=== PATIENT | female | born 1950 | race Two or more races ===

== ENCOUNTER 2021-10-23 16:35 | Inpatient (IN) | payer MEDICARE, OTHER ==
[~2021-10-23] VITALS: Ht 165.1 cm; Wt 70.8 kg
--- NOTE | 2021-10-23 16:45 | NUR ---
TO ER BED 8, BIBPA MORE WEAK ON LEFT SIDE SINCE 10AM AND ALTERED THAN USUAL, BASELINE AAOX2 PER AMBULANCE REPORT, PT RESPONSE TO NAME WHEN CALLED, CONNECTED TO MONITOR, AWAITING MD BARRETT
--- NOTE | 2021-10-23 17:08 | NUR ---
SALINE LOCK ESTABLISHED, BLOOD DRAWN AND SENT TO LAB
[2021-10-23] MEDS ORDERED: ASPI-1169 PO (17:10)
[2021-10-23] MEDS ORDERED: TOPI100T PO (17:10)
[2021-10-23] MEDS ORDERED: LACO50TA2 PO (17:10)
[2021-10-23] MEDS ORDERED: MULT-134 PO (17:10)
[2021-10-23] MEDS ORDERED: LEVE1000 PO (17:10)
[2021-10-23] MEDS ORDERED: CALC-1180 PO (17:10)
[2021-10-23] MEDS ORDERED: LEVO137T24 PO (17:10)
[2021-10-23] MEDS ORDERED: DONE10TA11 PO (17:10)
[2021-10-23] MEDS ORDERED: METO25TA4 PO (17:10)
[2021-10-23] MEDS ORDERED: ATOR80TA PO (17:10)
[2021-10-23] MEDS ORDERED: CHOL200013 PO (17:10)
[2021-10-23] MEDS ORDERED: BACL20TA PO (17:10)
[2021-10-23] MEDS ORDERED: FOLI0.8C PO (17:10)
[2021-10-23] MEDS ORDERED: DOCU-141 PO (17:10)
[2021-10-23] MEDS ORDERED: OMEG-88 PO (17:10)
[2021-10-23] MEDS ORDERED: CRAN3875 PO (17:10)
[2021-10-23] MEDS ORDERED: POTA-10 PO (17:10)
[2021-10-23 17:18] LABS: BASOPHILS % (AUTO) 0.4 % (0.0-2.0); EOSINOPHILS % (AUTO) 1.3 % (0.0-6.0); HEMATOCRIT 43 % (33-45); LYMPHOCYTES # (AUTO) 4.1 K/uL (0.8-4.8); LYMPHOCYTES % (AUTO) 34.5 % (20.0-44.0); MEAN CORPUSCULAR HGB CONC 32 g/dl (31.0-36.0); MEAN CORPUSCULAR VOLUME 100 fL (82-100); MONOCYTES # (AUTO) 0.9 K/uL (0.1-1.30); MONOCYTES % (AUTO) 7.3 % (2.0-12.0); NEUTROPHILS # (AUTO) 6.7 K/uL (1.8-8.9); NEUTROPHILS % (AUTO) 56.5 % (43.0-81.0); PLATELET COUNT (AUTO) 269 K/uL (150-450); RED BLOOD CELL COUNT(AUTO) 4.35 MIL/uL (4.0-5.2); WHITE BLOOD COUNT (AUTO) 11.8 K/uL (4.3-11.0)
--- NOTE | 2021-10-23 17:25 | NUR ---
TAKEN TO CT VIA OANH
[2021-10-23] MEDS ORDERED: IV NS 0.9% 500 ML BAG IV ONE (17:30)
[2021-10-23 17:32] LABS: ALBUMIN 3.2 g/dL (3.4-5.0); BILIRUBIN,TOTAL 0.3 mg/dL (0.2-1.0); CALCIUM, SERUM 8.7 mg/dL (8.5-10.1); CREATININE 0.7 mg/dL (0.6-1.3); POTASSIUM 4.7 mmol/L (3.5-5.1); TOTAL PROTEIN, SERUM 6.8 g/dL (6.4-8.2)
--- NOTE | 2021-10-23 17:40 | NUR ---
URINE COLLECTED AND COVID SWAB DONE AND SENT TO LAB
[2021-10-23 18:40] LABS: BILIRUBIN,URINE NEGATIVE (NEGATIVE); COLOR,URINE YELLOW (YELLOW); LEUKOCYTE ESTERASE ,URINE NEGATIVE (NEGATIVE); NITRITE, URINE NEGATIVE (NEGATIVE); PROTEIN,URINE NEGATIVE (NEGATIVE); UGLUCOSE NEGATIVE (NEGATIVE); UROBILINOGEN,URINE 0.2 EU/dL (0.2)
--- NOTE | 2021-10-23 19:25 | NUR ---
RECEIVED REPORT FROM ELIZA EPPS FOR ONEAL
--- NOTE | 2021-10-23 19:52 | NUR ---
PT IS RESTING COMFORTABLY IN BED, WARM BLANKETS PROVIDED. WILL CONTINUE TO MONITOR.
--- NOTE | 2021-10-23 20:08 | NUR ---
CALLED [facility], PAGED HERON TAYLOR
--- NOTE | 2021-10-23 21:02 | NUR ---
REPORT GIVEN TO ANAI EPPS FOR ONEAL
--- NOTE | 2021-10-23 21:45 | NUR ---
TEXT FOR MRI APPROVAL.
--- NOTE | 2021-10-23 21:49 | NUR ---
[facility] paged
[2021-10-23] MEDS ORDERED: ACETAMINOPHEN 650 MG/SUPP.RECT RC PRN (22:30)
[2021-10-23] MEDS ORDERED: MAG HYDROX/AL HYDROX/SIMETH 30 ML UDC PO PRN (22:30)
[2021-10-23] MEDS ORDERED: ENOXAPARIN SODIUM 40 MG/0.4 ML DISP.SYRIN SQ SCH ×2 (22:30→22:36)
--- NOTE | 2021-10-23 23:17 | NUR ---
RN ADMITTING NOTE RECEIVED REPORT FROM WENDY EPPS. PATIENT IS FROM [facility]. PATIENT IS A/O X 1 AT THIS TIME. RESPONDS TO NAME. PATIENT'S TELE MONITOR READS SR/ECTOPIC ATRIAL RHYTHM 65 BPM. NOTED RIGHT SIDE DEFICIT AND MILD LEFT SIDED WEAKNESS. PATIENT CAME WITH A STRAIGHT CATH 400 ML VOLUME ALREADY IN THE BAG. PATIENT HAS A LFA 20 G PATENT AND INTACT. PATIENT'S BREATHING EVEN AND UNLABORED. TOLERATING ROOM AIR AT 97% O2 SATURATION. PATIENT HAS A SHIRT AND A PILLOW FROM THE FACILITY FOR HER BELONGINGS. SKIN ISSUES DOCUMENTED. PATIENT ORIENTED TO ROOM, RN, AND SURGICAL DRESSING MAKER. PATIENT NEEDS FURTHER RE-ORIENTATION. SAFETY MEASURES IN PLACE: BED LOCKED AND IN LOWEST POSITION, CALL LIGHT WITHIN REACH, SIDE RAILS UP. HOB ELEVATED. WILL MONITOR PATIENT CLOSELY
[2021-10-24 00:05] VITALS: BP 146/59
--- NOTE | 2021-10-24 00:30 | NUR ---
RN NOTE ECHO BEING DONE AT BEDSIDE
[2021-10-24] MEDS: BLOOD SUGAR DIAGNOSTIC 1 EACH STRIP IN SCH ×4 (00:32→18:00)
--- NOTE | 2021-10-24 00:45 | NUR ---
RN NOTE NOTIFIED MD THAT PATIENT CAME WITH STRAIGHT CATH, PATIENT DOES NOT HAVE 12 LEAD EKG ON FILE, AND THAT PATIENT HAS A POLST. THAT STATES PATIENT TO BE DNR/DNI. OBTAINED ORDER FOR PLATA CATHETER INSERTION, EKG, AND DNR/DNI ORDER.
--- NOTE | 2021-10-24 01:22 | NUR ---
RN NOTE MD AT BEDSIDE HERON TAYLOR. PER , PATIENT WILL HAVE MRI WO CONTRAST FIRST THING IN AM AND HOLD PO MEDS FOR NOW UNTI PATIENT IS ALERT ENOUGH AND SEEN BY
[2021-10-24 05:00] VITALS: BP 135/60
--- NOTE | 2021-10-24 06:47 | NUR ---
RN CLOSING NOTE PATIENT IN BED, EYES CLOSED. PATIENT IS A/O X 1 AT THIS TIME. CALLED [facility] TO FILL OUT MRI QUESTIONNAIRE. SPOKE WITH PARAMJIT. PATIENT NOW HAS A PLATA CATHETER 16 MICRONESIAN INSERTED AT 0430. PATIENT BS 99 MG/DL, NO COVERAGE GIVEN. PATIENT REMAINED NPP D/T CONFUSION. LFA 20 G PATENT AND INTACT, SALINE LOCK ONLY. SAFETY MEASURES IMPLEMENTED. ALL NEEDS MET AND ATTENDED. ALL ORDERS CARRIED OUT. WILL ENDORSE TO DAY SHIFT NURSE FOR ONEAL.
[2021-10-24 07:25] LABS: BASOPHILS # (AUTO) 0.1 K/uL (0.0-0.2); BASOPHILS % (AUTO) 0.5 % (0.0-2.0); EOSINOPHILS % (AUTO) 0.5 % (0.0-6.0); HEMATOCRIT 44 % (33-45); HEMOGLOBIN 14.5 g/dL (11.5-14.8); LYMPHOCYTES # (AUTO) 2.7 K/uL (0.8-4.8); LYMPHOCYTES % (AUTO) 21.7 % (20.0-44.0); MEAN CORPUSCULAR HGB CONC 33 g/dl (31.0-36.0); MEAN CORPUSCULAR VOLUME 100 fL (82-100); MONOCYTES # (AUTO) 0.7 K/uL (0.1-1.30); MONOCYTES % (AUTO) 5.5 % (2.0-12.0); NEUTROPHILS % (AUTO) 71.8 % (43.0-81.0); PLATELET COUNT (AUTO) 229 K/uL (150-450); RED BLOOD CELL COUNT(AUTO) 4.46 MIL/uL (4.0-5.2); WHITE BLOOD COUNT (AUTO) 12.6 K/uL (4.3-11.0)
[2021-10-24] MEDS ORDERED: LEVOTHYROXINE SODIUM 100 MCG TABLET PO SCH (07:30)
[2021-10-24] MEDS ORDERED: BLOOD SUGAR DIAGNOSTIC 1 EACH STRIP IN SCH (07:30)
--- NOTE | 2021-10-24 07:52 | NUR ---
RN OPENING NOTE PATIENT IN BED, EYES CLOSED. PATIENT IS A/O X 1 AT THIS TIME. WHEN CALLED BY NAME SHE RESPONSE BUT CANNOT FOLLOW COMMAND DOES EXHIBIT PERIODS OF CONFUSION.PATIENT HAS A PLATA CATHETER 16 ALBANIAN NOTED TO HAVE CLEAR YELLOW URINE OUTPUT. LFA 20 G PATENT AND INTACT, SALINE LOCK ONLY. ENDORSE TO HOLD ALL PO PENDING SWALLOW EVAL. PER NIGHT NURSE NURSING SWALLOW EVAL DONE AND PATIENT WAS NOT ABLE TO SWALLOW PENDING SPEECH THERAPIST EVALUATION. SAFETY MEASURES IMPLEMENTED.
[2021-10-24 08:17] LABS: ALANINE AMINOTRANSFERASE 39 U/L (12-78); ALBUMIN 3.4 g/dL (3.4-5.0); ALKALINE PHOSPHATASE 146 U/L (46-116); ASPARTATE AMINOTRANSFERASE 23 U/L (15-37); BILIRUBIN,TOTAL 0.3 mg/dL (0.2-1.0); CALCIUM, SERUM 8.7 mg/dL (8.5-10.1); CARBON DIOXIDE 21 mmol/L (21-32); CHLORIDE 108 mmol/L (98-107); CREATININE 0.7 mg/dL (0.6-1.3); GLUCOSE 115 mg/dL (74-106); MAGNESIUM 2.4 mg/dL (1.8-2.4); POTASSIUM 3.9 mmol/L (3.5-5.1); SODIUM SERUM 140 mmol/L (136-145); TOTAL PROTEIN, SERUM 6.9 g/dL (6.4-8.2); UREA NITROGEN, BLOOD 14 mg/dL (7-18)
[2021-10-24 08:43] LABS: CHOLESTEROL 152 mg/dL (<200); HDL CHOLESTEROL 52 mg/dL (40-60); LDL 82 mg/dL (0-99); TRIGLYCERIDES 82 mg/dL (30-150)
[2021-10-24 09:00] VITALS: BP 179/71
[2021-10-24] MEDS: FOLIC ACID 1 MG TABLET PO SCH (09:00)
[2021-10-24] MEDS: LEVETIRACETAM (250 MG) 250 MG TABLET PO SCH ×2 (09:00→17:00)
[2021-10-24] MEDS: BACLOFEN (10 MG) 10 MG TABLET PO SCH ×2 (09:00→17:00)
[2021-10-24] MEDS: CALCIUM CARB 600MG /VIT D 1 EACH TABLET PO SCH (09:00)
[2021-10-24] MEDS: DONEPEZIL 5 MG TABLET PO SCH (09:00)
[2021-10-24] MEDS: POTASSIUM CHLORIDE 10 MEQ TABLET.SA PO SCH (09:00)
[2021-10-24] MEDS: LACOSAMIDE 50 MG TABLET PO SCH ×2 (09:00→17:00)
[2021-10-24] MEDS: CLOPIDOGREL BISULFATE 75 MG TABLET PO SCH (09:00)
[2021-10-24] MEDS: METOPROLOL SUCCINATE 25 MG TAB.SR.24H PO SCH (09:00)
[2021-10-24] MEDS: TOPIRAMATE 100 MG TABLET PO SCH (09:00)
[2021-10-24] MEDS: ASPIRIN 81 MG TAB.CHEW PO SCH (09:00)
[2021-10-24] MEDS: MULTIVIT W/MINERALS 1 TAB TABLET PO SCH (09:00)
[2021-10-24] MEDS: ASPIRIN EC 325 MG TABLET.DR PO SCH (09:00)
[2021-10-24] MEDS: DOCUSATE SODIUM 100 MG CAPSULE PO SCH (09:00)
[2021-10-24] MEDS: CHOLECALCIFEROL 1,000 UNIT TABLET (VIT D3) PO SCH (09:00)
[2021-10-24] MEDS: ENOXAPARIN SODIUM 40 MG/0.4 ML DISP.SYRIN SQ SCH (09:10)
[2021-10-24] MEDS: PANTOPRAZOLE 40 MG VIAL IV SCH (09:11)
--- NOTE | 2021-10-24 09:50 | NUR ---
RN NOTE PATIENT IS PENDING SWALLOW EVALUATION. PATIENT NOT ALERT ENOUGH TO SWALLOW PO MEDICATION. INFORMED PROVIDER DS OF CURRENT BLOOD PRESSURE. PER PROVIDER ALLOW BLAS PERMISSIVE HYPERTENSION.
[2021-10-24 16:00] VITALS: BP 194/80
[2021-10-24] MEDS: IV LR 1000 ML 1,000 ML IV PRN (17:03)
--- NOTE | 2021-10-24 18:41 | NUR ---
RN CLOSING NOTE PATIENT IN BED, EYES CLOSED. PATIENT IS A/O X 1 AT THIS TIME. PATIENT IS ON ROOM AIR. NO CURRENT SINGS OF DISTRESSS, PAIN OR SOB. PATIENT HAS A PLATA CATHETER 16 HAITIAN. LFA 20 G PATENT AND INTACT, SALINE LOCK ONLY. SAFETY MEASURES IMPLEMENTED. ALL NEEDS MET AND ATTENDED. PATIENT IS NPO INCLUDING MEDICATION PENDING SWALLOW EVALUATION. ALL ORDERS CARRIED OUT. WILL ENDORSE TO CASHIER TICKET SELLING NURSE FOR ONEAL.
--- NOTE | 2021-10-24 19:30 | NUR ---
TELE1 RN NOTES RECEIVED LAYING ON BED,A/O X1,BREATHING REGULAR,NOT IN ANY FORM OF DISTRESS,NPO STATUS,PENDING SWALLOW EVALUATION.IVF LR AT 75ML/HR RATE INFUSING ON LEFT LOWER ARM,SITE PATENT.RIGHT HEEL DTI SACRAL DTI DRESSING INTACT AND DRY.WITH PLATA CATH IN PLACE DRAINING YELLOWISH OUTPUT.WILL CONTINUE TO MONITOR STATUS.
--- NOTE | 2021-10-24 19:35 | NUR ---
TELE1 RN NOTES NOTED BLOOD SHOT RED EYE ON THE RIGHT.OFFER TO COVER WITH DRY GAUZE BUT REFUSED
[2021-10-24 20:00] VITALS: BP 188/95
[2021-10-24] MEDS: ATORVASTATIN 40 MG TABLET PO SCH (21:18)
--- NOTE | 2021-10-24 21:46 | NUR ---
TELE1 RN NOTES BLOOD PRESSURE OF 188/95,HR-95, HOSPITALIST HERON MADE AWARE,THAT PATIENT DOESNT HAVE ANY BLOOP PRESSURE MEDS IV,AND PATIENT WAS ON NPO STATUS AWAITINF SWALLOW EVAL.MADE AWARE ALSO OF BLOOD SUGAR READING X4.
[2021-10-24] MEDS ORDERED: SIMVASTATIN 20 MG TABLET PO SCH (22:00)
[2021-10-24] MEDS: hydrALAZINE HCL IV 20 MG VIAL IV PRN (22:19)
--- NOTE | 2021-10-24 22:19 | NUR ---
TELE1 RN NOTES HYDRALAZINE 10MG IV ADMINISTERED NEW ORDER FOR BLOOD PRESSURE 188/95.WILL KEEP SBP BELOW 180.
[2021-10-25] VITALS: BP 158/92
--- NOTE | 2021-10-25 | NUR ---
DEAN OF INSTRUCTION NOTES LATEST BLOOD PRESSURE 158/92 HR-119,WITH SLIGHT TEMP OF 99.9,STARTED WITH COOLING MEASURES.
--- NOTE | 2021-10-25 | NUR ---
TELE1 RN NOTES ACCU-CHECK BLOOD SUGAR CHECK 133,NO INSULIN COVERAGE,
[2021-10-25] MEDS: BLOOD SUGAR DIAGNOSTIC 1 EACH STRIP IN SCH ×5 (00:07→23:29)
[2021-10-25 04:00] VITALS: BP 170/96
--- NOTE | 2021-10-25 05:30 | NUR ---
TELE1 RN NOTES ACCU-CHECK BLOOD SUGAR CHECK 125,NO INSULIN COVERAGE
--- NOTE | 2021-10-25 06:33 | NUR ---
COMPOUND COATING MACHINE OFFBEARER NOTE LATEST BLOOD PRESSURE 170/96,KEEPING SBP BELOW 180.WITH STANDING ORDER OF HYDRALAZINE 10MG IV Q 4 NEEDED.MORNING CARE RENDERED,PLATA CATH DRAINS WELL,EMPTIED 900 ML URINE OUTPUT.DNR/DNI STATUS.
[2021-10-25 07:02] LABS: CALCIUM, SERUM 8.8 mg/dL (8.5-10.1); CARBON DIOXIDE 23 mmol/L (21-32); CHLORIDE 104 mmol/L (98-107); CREATININE 0.7 mg/dL (0.6-1.3); GLUCOSE 132 mg/dL (74-106); PHOSPHORUS 2.6 mg/dL (2.5-4.9); POTASSIUM 3.6 mmol/L (3.5-5.1); SODIUM SERUM 139 mmol/L (136-145); UREA NITROGEN, BLOOD 10 mg/dL (7-18)
[2021-10-25] MEDS: LEVOTHYROXINE SODIUM 125 MCG TABLET PO SCH (07:30)
[2021-10-25 07:35] LABS: BASOPHILS % (AUTO) 0.1 % (0.0-2.0); HEMATOCRIT 44 % (33-45); HEMOGLOBIN 14.3 g/dL (11.5-14.8); LYMPHOCYTES # (AUTO) 1.8 K/uL (0.8-4.8); LYMPHOCYTES % (AUTO) 10.7 % (20.0-44.0); MEAN CORPUSCULAR HGB CONC 33 g/dl (31.0-36.0); MEAN CORPUSCULAR VOLUME 98 fL (82-100); MONOCYTES # (AUTO) 0.8 K/uL (0.1-1.30); MONOCYTES % (AUTO) 4.8 % (2.0-12.0); NEUTROPHILS # (AUTO) 13.9 K/uL (1.8-8.9); NEUTROPHILS % (AUTO) 84.4 % (43.0-81.0); PLATELET COUNT (AUTO) 352 K/uL (150-450); RED BLOOD CELL COUNT(AUTO) 4.47 MIL/uL (4.0-5.2); WHITE BLOOD COUNT (AUTO) 16.5 K/uL (4.3-11.0)
--- NOTE | 2021-10-25 07:53 | NUR ---
RN OPENING NOTE PATIENT RECEIVED IN BED, AO X 1-2. ABLE TO RESPONDS ALL STIMULI. IN NO ACUTE DISTRESS NOTED. RESPIRATORY EVEN AND UNLABORED ON ROOM AIR. SKIN IS WARM TO TOUCH, KEEP CLEAN/DRY. KEPT ELEVATED HOB FOR ENSURE AIRWAY AND ASPIRATION PRECAUTION, ALSO LOWEST POSITION OF THE BED, S/R UP X 3, BED ALARM IS ON AT ALL THE TIMES. ALL SAFETY PRECAUTION APPLIED. CALL LIGHT WITHIN REACH, WILL CONTINUE TO MONITOR.
[2021-10-25 08:00] VITALS: BP 180/92
[2021-10-25] MEDS: ASPIRIN 81 MG TAB.CHEW PO SCH (09:00)
[2021-10-25] MEDS: POTASSIUM CHLORIDE 10 MEQ TABLET.SA PO SCH (09:00)
[2021-10-25] MEDS: METOPROLOL SUCCINATE 25 MG TAB.SR.24H PO SCH (09:00)
[2021-10-25] MEDS: DOCUSATE SODIUM 100 MG CAPSULE PO SCH (09:00)
[2021-10-25] MEDS: CHOLECALCIFEROL 1,000 UNIT TABLET (VIT D3) PO SCH (09:00)
[2021-10-25] MEDS: LEVETIRACETAM (250 MG) 250 MG TABLET PO SCH ×2 (09:00→16:40)
[2021-10-25] MEDS: CLOPIDOGREL BISULFATE 75 MG TABLET PO SCH (09:00)
[2021-10-25] MEDS: CALCIUM CARB 600MG /VIT D 1 EACH TABLET PO SCH (09:00)
[2021-10-25] MEDS: LACOSAMIDE 50 MG TABLET PO SCH ×2 (09:00→16:40)
[2021-10-25] MEDS: DONEPEZIL 5 MG TABLET PO SCH (09:00)
[2021-10-25] MEDS: FOLIC ACID 1 MG TABLET PO SCH (09:00)
[2021-10-25] MEDS: ASPIRIN EC 325 MG TABLET.DR PO SCH (09:00)
[2021-10-25] MEDS: BACLOFEN (10 MG) 10 MG TABLET PO SCH ×2 (09:00→16:40)
[2021-10-25] MEDS: TOPIRAMATE 100 MG TABLET PO SCH (09:00)
[2021-10-25] MEDS: MULTIVIT W/MINERALS 1 TAB TABLET PO SCH (09:00)
[2021-10-25] MEDS: PANTOPRAZOLE 40 MG VIAL IV SCH (09:23)
[2021-10-25] MEDS: ENOXAPARIN SODIUM 40 MG/0.4 ML DISP.SYRIN SQ SCH (09:25)
[2021-10-25] MEDS: IV LR 1000 ML 1,000 ML IV PRN (09:26)
[2021-10-25] MEDS: hydrALAZINE HCL IV 20 MG VIAL IV PRN (10:01)
--- NOTE | 2021-10-25 10:55 | NUR ---
PATIENT HAS BEEN DONE SWALLOW EVALUATION AND ST RECOMMENDED PURRED NECATOR THICK LIQUID, CRASH MEDS.
[2021-10-25 12:00] VITALS: BP 144/66
[2021-10-25 16:00] VITALS: BP 143/73
--- NOTE | 2021-10-25 18:52 | NUR ---
RN CLOSING NOTE PATIENT IN BED, IN NO ACUTE DISTRESS OBSERVED. SKIN IS WARM TO TOUCH KEEP CLEAN/DRY. RESPIRATORY EVEN AND UNLABORED ON ROOM AIR. KEPT ELEVATED HOB FOR ENSURE AIRWAY AND ASPIRATION PRECAUTION, AND LOWEST POSITION OF THE BED FOR SAFETY. CALL LIGHT WITHIN REACH, WILL ENDORSE TO DELIVERY AGENT.
--- NOTE | 2021-10-25 19:30 | NUR ---
RN NOTE PT RECEIVED IN BED. ON ROOM AIR SHOWING NO S/SX OF RESP DISTRESS/SOB. BREATHING EVEN AND UNLABORED. PT IS A/OX0-1. ON MONITOR SHOWING NSR. PLATA CATH NOTED. IV ACCESS NOTED ON LEFT WRIST #20 RUNNING L.R. AT 75 CC/HR. ALL SAFETY MEASURES IMPLEMENTED. WILL CONTINUE TO MONITOR AND ASSESS FOR ANY CHANGES DURING SHIFT.
--- NOTE | 2021-10-25 19:44 | NUR ---
RN NOTE SPOKE WITH JOHANNA TAYLOR REGARDING PT HAVING FEVER OF 100.6. JOHANNA TAYLOR ORDERED TYLENOL 650MG PO Q6H PRN. ALSO, ASKED JOHANNA TAYLOR THAT PT HAS BOTH ATORVASTATIN AND SIMVASTATIN SCHEDULED FOR 2200. ASKED IF SHE WANTS ME TO ADMINISTER BOTH, PER JOHANNA TAYLOR D/C SIMVASTATIN 40MG. ORDER NOTED AND CARRIED OUT.
[2021-10-25 20:00] VITALS: BP 120/53
[2021-10-25] MEDS: ACETAMINOPHEN 325 MG TABLET PO PRN (21:17)
[2021-10-25] MEDS: ATORVASTATIN 40 MG TABLET PO SCH (21:17)
[2021-10-25] MEDS ORDERED: LEVOFLOXACIN 500 MG /D5W 100ML 100 ML IV ONE (21:23)
[2021-10-25] MEDS: LEVOFLOXACIN 500 MG /D5W 100ML 500 MG in PREMIX 1 EA IV SCH (22:05)
--- NOTE | 2021-10-25 22:21 | NUR ---
RN NOTE PT TEMPERATURE NOW 99.5 VIA ORALLY. WILL CONTINUE TO MONITOR AND ASSESS FOR ANY CHANGES.
--- NOTE | 2021-10-25 23:36 | NUR ---
RN NOTE SPOKE WITH JOHANNA TAYLOR REGARDING ACCUCHECK NOTES STATING SHOULD BE Q6H IF PT NPO. INFORMNED THAT PT NOW PUREED AND PER BRANDON CHANGE SLIDING SCALE TO ACHS.
[2021-10-26] VITALS: BP 148/55
[2021-10-26] MEDS: IV LR 1000 ML 1,000 ML IV PRN ×2 (01:31→17:38)
[2021-10-26 04:00] VITALS: BP 162/81
--- NOTE | 2021-10-26 06:33 | NUR ---
RN NOTE NO CHANGES IN PT CONDITION DURING SHIFT. PT IS ON ROOM AIR SHOWING NO S/SX OF RESP DISTRESS/SOB. ON MONITOR SHOWING NSR-ST. IV ACCESS ON LEFT WRIST INFUSING LR AT 75 CC/HR. ALL DUE MEDS GIVEN ORDERED. PT KEPT CLEAN AND COMFORTABLE. ALL SAFETY MEASURES IMPLEMENTED. WILL ENDORSE TO MORNING SHIFT RN FOR ONEAL.
[2021-10-26 06:51] LABS: BASOPHILS # (AUTO) 0.1 K/uL (0.0-0.2); BASOPHILS % (AUTO) 0.4 % (0.0-2.0); EOSINOPHILS % (AUTO) 0.1 % (0.0-6.0); HEMATOCRIT 43 % (33-45); HEMOGLOBIN 13.9 g/dL (11.5-14.8); LYMPHOCYTES # (AUTO) 2.1 K/uL (0.8-4.8); LYMPHOCYTES % (AUTO) 17.5 % (20.0-44.0); MEAN CORPUSCULAR HGB CONC 33 g/dl (31.0-36.0); MEAN CORPUSCULAR VOLUME 99 fL (82-100); MONOCYTES # (AUTO) 0.8 K/uL (0.1-1.30); MONOCYTES % (AUTO) 7.1 % (2.0-12.0); NEUTROPHILS # (AUTO) 8.8 K/uL (1.8-8.9); NEUTROPHILS % (AUTO) 74.9 % (43.0-81.0); PLATELET COUNT (AUTO) 314 K/uL (150-450); RED BLOOD CELL COUNT(AUTO) 4.33 MIL/uL (4.0-5.2); WHITE BLOOD COUNT (AUTO) 11.8 K/uL (4.3-11.0)
[2021-10-26 07:24] LABS: CALCIUM, SERUM 8.3 mg/dL (8.5-10.1); CARBON DIOXIDE 25 mmol/L (21-32); CHLORIDE 106 mmol/L (98-107); CREATININE 0.7 mg/dL (0.6-1.3); GLUCOSE 131 mg/dL (74-106); MAGNESIUM 2.1 mg/dL (1.8-2.4); PHOSPHORUS 2.1 mg/dL (2.5-4.9); POTASSIUM 3.4 mmol/L (3.5-5.1); SODIUM SERUM 142 mmol/L (136-145); UREA NITROGEN, BLOOD 11 mg/dL (7-18)
[2021-10-26 08:00] VITALS: BP 150/63
--- NOTE | 2021-10-26 08:10 | NUR ---
TELE/RN OPENING NOTE RECEIVED PATIENT IN BED, IN NO ACUTE DISTRESS OBSERVED. SKIN IS WARM TO TOUCH KEEP CLEAN/DRY. RESPIRATORY EVEN AND UNLABORED ON ROOM AIR. KEPT ELEVATED HOB FOR ENSURE AIRWAY AND ASPIRATION PRECAUTION, AND LOWEST POSITION OF THE BED FOR SAFETY. CALL LIGHT WITHIN REACH, WILL CONTINUE WITH THE PLAN OF CARE.
--- NOTE | 2021-10-26 08:16 | NUR ---
WOUND CARE CONSULT: PT PRESENTS WITH RT HEEL INTACT DEEP TISSUE INJURY AND SACRAL/BUTTOCKS SCARRING, RT EYE REDNESS, ALL PRESENT ON ADMISSION. PT NOTED TO HAVE REDNESS TO FACE, NECK/UPPER CHEST AND SHOULDERS, UNKNOWN ETIOLOGY. DEFER TO PMD FOR FACE/CHEST REDNESS. RECOMMENDATIONS MADE FOR SKIN PROTECTION. DISCUSSED WITH NURSING STAFF. IN AGREEMENT WITH PLAN OF CARE. Addendum: 10/26/21 at 0818 by LENY CLOUD WNDNU Amended: Links added.
[2021-10-26] MEDS: BLOOD SUGAR DIAGNOSTIC 1 EACH STRIP IN SCH ×4 (08:18→21:15)
[2021-10-26] MEDS: LEVOTHYROXINE SODIUM 125 MCG TABLET PO SCH (08:29)
[2021-10-26] MEDS ORDERED: Z GUARD REMEDY 4 OZ OINT TP PRN (08:30)
[2021-10-26] MEDS: MULTIVIT W/MINERALS 1 TAB TABLET PO SCH (09:06)
[2021-10-26] MEDS: LEVETIRACETAM (250 MG) 250 MG TABLET PO SCH ×2 (09:06→16:53)
[2021-10-26] MEDS: LACOSAMIDE 50 MG TABLET PO SCH ×2 (09:06→16:53)
[2021-10-26] MEDS: PANTOPRAZOLE 40 MG VIAL IV SCH (09:06)
[2021-10-26] MEDS: DONEPEZIL 5 MG TABLET PO SCH (09:07)
[2021-10-26] MEDS: CALCIUM CARB 600MG /VIT D 1 EACH TABLET PO SCH (09:07)
[2021-10-26] MEDS: ASPIRIN 81 MG TAB.CHEW PO SCH (09:07)
[2021-10-26] MEDS: FOLIC ACID 1 MG TABLET PO SCH (09:07)
[2021-10-26] MEDS: CLOPIDOGREL BISULFATE 75 MG TABLET PO SCH (09:07)
[2021-10-26] MEDS: BACLOFEN (10 MG) 10 MG TABLET PO SCH ×2 (09:08→16:53)
[2021-10-26] MEDS: CHOLECALCIFEROL 1,000 UNIT TABLET (VIT D3) PO SCH (09:08)
[2021-10-26] MEDS: DOCUSATE SODIUM 100 MG CAPSULE PO SCH (09:08)
[2021-10-26] MEDS: Z GUARD REMEDY 4 OZ OINT TP SCH (09:09)
[2021-10-26] MEDS: POTASSIUM CHLORIDE 10 MEQ TABLET.SA PO SCH (09:10)
[2021-10-26] MEDS: TOPIRAMATE 100 MG TABLET PO SCH (09:10)
[2021-10-26] MEDS: ENOXAPARIN SODIUM 40 MG/0.4 ML DISP.SYRIN SQ SCH (09:11)
[2021-10-26] MEDS: METOPROLOL SUCCINATE 25 MG TAB.SR.24H PO SCH (09:11)
[2021-10-26] MEDS: PROSOURCE / PROSTAT (PYXIS) 30 ML UDC PO SCH ×2 (10:13→16:54)
--- NOTE | 2021-10-26 12:01 | NUR ---
SS Note: SS received consult regarding stroke. Per EMR, pt. presents to the hospital for left side weakness and altered than usual. Pt. is a 71-year-old female with hx of CVA. SS attempted to interview pt. but pt. is not able to speak. Pt. is alert and oriented x1-2, able to make eye-contact, but unable to speak. When a question is asked, pt. would mumble. Per EMR, pt. resides at [facility], on a 7-day bed hold. Pt. will return to facility upon discharge. Resources Provided: Stroke Empowerment Packet.
[2021-10-26 12:24] VITALS: BP 167/68
[2021-10-26] MEDS ORDERED: POTASSIUM CHLORIDE 20 MEQ POWDER PACKET PO SCH (12:30)
[2021-10-26] MEDS ORDERED: K PHOS NEUTRAL 250 MG TABLET PO ONE (15:30)
[2021-10-26 16:41] VITALS: BP 143/56
[2021-10-26 20:00] VITALS: BP 152/57
[2021-10-26] MEDS: LEVOFLOXACIN 500 MG /D5W 100ML 500 MG in PREMIX 1 EA IV SCH (21:16)
[2021-10-26] MEDS: ATORVASTATIN 40 MG TABLET PO SCH (21:19)
[2021-10-27] VITALS: BP 181/81
[2021-10-27] MEDS: hydrALAZINE HCL IV 20 MG VIAL IV PRN (00:48)
[2021-10-27 04:00] VITALS: BP 126/92
--- NOTE | 2021-10-27 06:22 | NUR ---
RN NOTE NO CHANGES IN PT CONDITION DURING SHIFT. PT IS ON ROOM AIR SHOWING NO S/SX OF RESP DISTRESS/SOB. ON MONITOR SHOWING NSR-ST. IV ACCESS ON LEFT WRIST INFUSING LACTATED RINGERS AT 75 CC/HR. ALL DUE MEDS GIVEN ORDERED. PT KEPT CLEAN AND COMFORTABLE. ALL SAFETY MEASURES IMPLEMENTED. WILL ENDORSE TO MORNING SHIFT RN FOR ONEAL.
--- NOTE | 2021-10-27 07:15 | NUR ---
RN OPENING NOTE RECEIVED PATIENT IN BED, AWAKE, ALERT/ORIENTED X 1, APHASIC. ON ROOM AIR, TOLERATING WELL BREATHING EVEN AND UNLABORED. NO SIGNS OF ANY ACUTE DISTRESS NOTED. ON TELE MONITOR SHOWING NSR. PLATA CATH NOTED, DRAINING YELLOW URINE . IV ACCESS NOTED ON LEFT WRIST #20 INFUSING L.R. AT 75 CC/HR. NO SIGNS OF INFILTRATION NOTED ON SITE. ALL SAFETY MEASURES IMPLEMENTED. HOB ELEVATED, BED LOCKED AND IN LOWEST POSITION WITH SIDE RAILS UP. CALL LIGHT WITHIN REACH. WILL CONTINUE TO MONITOR AND ASSESS FOR ANY CHANGES DURING SHIFT.
[2021-10-27 07:31] LABS: BASOPHILS % (AUTO) 0.1 % (0.0-2.0); HEMATOCRIT 45 % (33-45); HEMOGLOBIN 14.5 g/dL (11.5-14.8); LYMPHOCYTES # (AUTO) 2.7 K/uL (0.8-4.8); LYMPHOCYTES % (AUTO) 19.2 % (20.0-44.0); MEAN CORPUSCULAR HGB CONC 32 g/dl (31.0-36.0); MEAN CORPUSCULAR VOLUME 99 fL (82-100); MONOCYTES # (AUTO) 1.1 K/uL (0.1-1.30); MONOCYTES % (AUTO) 8.1 % (2.0-12.0); NEUTROPHILS # (AUTO) 10.2 K/uL (1.8-8.9); NEUTROPHILS % (AUTO) 72.6 % (43.0-81.0); PLATELET COUNT (AUTO) 320 K/uL (150-450); RED BLOOD CELL COUNT(AUTO) 4.54 MIL/uL (4.0-5.2); WHITE BLOOD COUNT (AUTO) 14.1 K/uL (4.3-11.0)
[2021-10-27 07:53] LABS: CALCIUM, SERUM 8.8 mg/dL (8.5-10.1); CARBON DIOXIDE 27 mmol/L (21-32); CHLORIDE 106 mmol/L (98-107); CREATININE 0.6 mg/dL (0.6-1.3); GLUCOSE 117 mg/dL (74-106); MAGNESIUM 2.2 mg/dL (1.8-2.4); PHOSPHORUS 2.2 mg/dL (2.5-4.9); POTASSIUM 3.3 mmol/L (3.5-5.1); SODIUM SERUM 140 mmol/L (136-145); UREA NITROGEN, BLOOD 7 mg/dL (7-18)
[2021-10-27 08:00] VITALS: BP 189/91
[2021-10-27] MEDS: PROSOURCE / PROSTAT (PYXIS) 30 ML UDC PO SCH ×2 (08:59→17:07)
[2021-10-27] MEDS: CALCIUM CARB 600MG /VIT D 1 EACH TABLET PO SCH (09:00)
[2021-10-27] MEDS: CHOLECALCIFEROL 1,000 UNIT TABLET (VIT D3) PO SCH (09:01)
[2021-10-27] MEDS: CLOPIDOGREL BISULFATE 75 MG TABLET PO SCH (09:01)
[2021-10-27] MEDS: DOCUSATE SODIUM 100 MG CAPSULE PO SCH (09:01)
[2021-10-27] MEDS: BACLOFEN (10 MG) 10 MG TABLET PO SCH ×2 (09:02→17:07)
[2021-10-27] MEDS: PANTOPRAZOLE 40 MG TABLET.DR PO SCH (09:02)
[2021-10-27] MEDS: ASPIRIN 81 MG TAB.CHEW PO SCH (09:02)
[2021-10-27] MEDS: DONEPEZIL 5 MG TABLET PO SCH (09:02)
[2021-10-27] MEDS: TOPIRAMATE 100 MG TABLET PO SCH (09:02)
[2021-10-27] MEDS: POTASSIUM CHLORIDE 10 MEQ TABLET.SA PO SCH (09:02)
[2021-10-27] MEDS: LEVOTHYROXINE SODIUM 125 MCG TABLET PO SCH (09:02)
[2021-10-27] MEDS: FOLIC ACID 1 MG TABLET PO SCH (09:12)
[2021-10-27] MEDS: LACOSAMIDE 50 MG TABLET PO SCH ×2 (09:12→17:07)
[2021-10-27] MEDS: MULTIVIT W/MINERALS 1 TAB TABLET PO SCH (09:12)
[2021-10-27] MEDS: LEVETIRACETAM (250 MG) 250 MG TABLET PO SCH ×2 (09:12→17:07)
[2021-10-27] MEDS: METOPROLOL SUCCINATE 25 MG TAB.SR.24H PO SCH (09:13)
[2021-10-27] MEDS: ENOXAPARIN SODIUM 40 MG/0.4 ML DISP.SYRIN SQ SCH (09:14)
[2021-10-27] MEDS: Z GUARD REMEDY 4 OZ OINT TP SCH (09:14)
[2021-10-27] MEDS: BLOOD SUGAR DIAGNOSTIC 1 EACH STRIP IN SCH ×4 (10:16→22:24)
[2021-10-27] MEDS: IV LR 1000 ML 1,000 ML IV PRN (11:05)
[2021-10-27 12:00] VITALS: BP 158/71
[2021-10-27] MEDS ORDERED: POTASSIUM CHLORIDE 20 MEQ TAB.PRT.SR PO SCH ×2 (12:00→13:30)
[2021-10-27] MEDS ORDERED: K PHOS NEUTRAL 250 MG TABLET PO ONE (14:00)
[2021-10-27 16:00] VITALS: BP 151/70
--- NOTE | 2021-10-27 18:56 | NUR ---
RN CLOSING NOTE NO SIGNIFICANT CHANGES THROUGHOUT SHIFT, PATIENT REMAINS IN STABLE CONDITION. PATIENT IN BED, RESTING, ALERT/ORIENTED X 1. ON ROOM AIR, TOLERATING WELL WITH SATURATION OF 97% BREATHING EVEN AND UNLABORED. NO SIGNS OF ANY ACUTE DISTRESS NOTED. PLATA CATH NOTED, DRAINING YELLOW URINE . IV ACCESS NOTED ON LEFT WRIST #20 INFUSING L.R. AT 75 CC/HR. NO SIGNS OF INFILTRATION NOTED ON SITE. ALL DUE MEDSD GIVEN ORDERED. ALL NEEDS ANTICIPATED. KEPT PATIENT CLEAN DRY AND COMFORTABLE. ALL SAFETY MEASURES IMPLEMENTED. HOB ELEVATED, BED LOCKED AND IN LOWEST POSITION WITH SIDE RAILS UP. CALL LIGHT WITHIN REACH. WILL ENDORSE TO ONCOMING NURSE FOR CONTINUITY OF CARE.
--- NOTE | 2021-10-27 19:25 | NUR ---
RN NOTE PT RECEIVED IN BED. ON ROOM AIR SHOWING NO S/SX OF RESP DISTRESS/SOB. BREATHING EVEN AND UNLABORED. PT IS A/OX1. ON MONITOR SHOWING NSR. PLATA CATH NOTED. IV ACCESS NOTED ON LEFT WRIST #20 RUNNING L.R. AT 75 CC/HR. ALL SAFETY MEASURES IMPLEMENTED. WILL CONTINUE TO MONITOR AND ASSESS FOR ANY CHANGES DURING SHIFT.
[2021-10-27 20:00] VITALS: BP 135/60
[2021-10-27] MEDS: ATORVASTATIN 40 MG TABLET PO SCH (21:51)
[2021-10-27] MEDS: ACETAMINOPHEN 325 MG TABLET PO PRN (21:52)
[2021-10-27] MEDS: LEVOFLOXACIN 500 MG /D5W 100ML 500 MG in PREMIX 1 EA IV SCH (21:52)
[2021-10-28] MEDS: IV LR 1000 ML 1,000 ML IV PRN (02:58)
[2021-10-28 04:00] VITALS: BP 166/63
[2021-10-28 07:11] LABS: CALCIUM, SERUM 8.6 mg/dL (8.5-10.1); CARBON DIOXIDE 29 mmol/L (21-32); CHLORIDE 108 mmol/L (98-107); CREATININE 0.7 mg/dL (0.6-1.3); GLUCOSE 107 mg/dL (74-106); POTASSIUM 3.7 mmol/L (3.5-5.1); SODIUM SERUM 142 mmol/L (136-145); UREA NITROGEN, BLOOD 11 mg/dL (7-18)
--- NOTE | 2021-10-28 07:51 | NUR ---
MS RN OPENING NOTE Patient in bed, asleep. A/O x 1. On room air, breathing evenly and unlabored. No SOB or s/s of distress noted. IV access on Left wrist infusing LR at 75 ml/hr. Steele catheter in place draining to a yellow colored urine. Safety precautions in place: bed in low, locked position; siderails up x 2; call light within reach. Will continue to monitor.
[2021-10-28] MEDS: BLOOD SUGAR DIAGNOSTIC 1 EACH STRIP IN SCH ×2 (08:18→12:10)
[2021-10-28] MEDS: LEVOTHYROXINE SODIUM 125 MCG TABLET PO SCH (08:59)
[2021-10-28] MEDS: DOCUSATE SODIUM 100 MG CAPSULE PO SCH (09:00)
[2021-10-28] MEDS: LACOSAMIDE 50 MG TABLET PO SCH (09:00)
[2021-10-28] MEDS: PANTOPRAZOLE 40 MG TABLET.DR PO SCH (09:00)
[2021-10-28] MEDS: LEVETIRACETAM (250 MG) 250 MG TABLET PO SCH (09:00)
[2021-10-28] MEDS: DONEPEZIL 5 MG TABLET PO SCH (09:01)
[2021-10-28] MEDS: ASPIRIN 81 MG TAB.CHEW PO SCH (09:01)
[2021-10-28] MEDS: POTASSIUM CHLORIDE 10 MEQ TABLET.SA PO SCH (09:01)
[2021-10-28] MEDS: FOLIC ACID 1 MG TABLET PO SCH (09:01)
[2021-10-28] MEDS: CLOPIDOGREL BISULFATE 75 MG TABLET PO SCH (09:01)
[2021-10-28] MEDS: CHOLECALCIFEROL 1,000 UNIT TABLET (VIT D3) PO SCH (09:02)
[2021-10-28] MEDS: BACLOFEN (10 MG) 10 MG TABLET PO SCH (09:02)
[2021-10-28] MEDS: MULTIVIT W/MINERALS 1 TAB TABLET PO SCH (09:02)
[2021-10-28] MEDS: CALCIUM CARB 600MG /VIT D 1 EACH TABLET PO SCH (09:02)
[2021-10-28] MEDS: ENOXAPARIN SODIUM 40 MG/0.4 ML DISP.SYRIN SQ SCH (09:03)
[2021-10-28] MEDS: TOPIRAMATE 100 MG TABLET PO SCH (09:03)
[2021-10-28 09:04] VITALS: BP 149/89
[2021-10-28] MEDS: METOPROLOL SUCCINATE 25 MG TAB.SR.24H PO SCH (09:04)
[2021-10-28] MEDS: Z GUARD REMEDY 4 OZ OINT TP SCH (09:05)
[2021-10-28] MEDS: PROSOURCE / PROSTAT (PYXIS) 30 ML UDC PO SCH (09:07)
[2021-10-28 10:07] LABS: BASOPHILS % (AUTO) 0.2 % (0.0-2.0); EOSINOPHILS % (AUTO) 0.4 % (0.0-6.0); HEMATOCRIT 43 % (33-45); HEMOGLOBIN 13.9 g/dL (11.5-14.8); LYMPHOCYTES # (AUTO) 2.8 K/uL (0.8-4.8); LYMPHOCYTES % (AUTO) 27.2 % (20.0-44.0); MEAN CORPUSCULAR HGB CONC 32 g/dl (31.0-36.0); MEAN CORPUSCULAR VOLUME 100 fL (82-100); MONOCYTES # (AUTO) 0.9 K/uL (0.1-1.30); MONOCYTES % (AUTO) 8.9 % (2.0-12.0); NEUTROPHILS # (AUTO) 6.5 K/uL (1.8-8.9); NEUTROPHILS % (AUTO) 63.3 % (43.0-81.0); PLATELET COUNT (AUTO) 243 K/uL (150-450); RED BLOOD CELL COUNT(AUTO) 4.31 MIL/uL (4.0-5.2); WHITE BLOOD COUNT (AUTO) 10.3 K/uL (4.3-11.0)
[2021-10-28 11:43] LABS: BILIRUBIN,URINE NEGATIVE (NEGATIVE); COLOR,URINE YELLOW (YELLOW); LEUKOCYTE ESTERASE ,URINE TRACE (NEGATIVE); NITRITE, URINE NEGATIVE (NEGATIVE); PH,URINE 7.5 (5.0-8.0); PROTEIN,URINE NEGATIVE (NEGATIVE); UGLUCOSE 100 MG/DL mg/dL (NEGATIVE); UROBILINOGEN,URINE 0.2 EU/dL (0.2)
[2021-10-28] MEDS ORDERED: CLOP75TA15 PO (12:32)
[2021-10-28] MEDS ORDERED: LEVO500T90 PO (12:32)
[2021-10-28 15:01] LABS: BACTERIA,URINE 1+ /HPF (None Seen); RBC,URINE 21-50 /HPF (0-2); SQUAMOUS EPITHELIAL CELL,UR Few /HPF (None Seen); WBC,URINE 21-50 /HPF (0-3)
--- NOTE | 2021-10-28 16:30 | NUR ---
DISCHARGE NOTE Received order for discharge. Patient is A/O x 1. Stable on room air, breathing evenly and unlabored. No SOB or s/s of distress noted. Report given to [facility] [place] [facility]. Steele catheter in place, drained 750 cc or yellow colored urine. Photos of skin condition taken and placed in chart. IV access removed, catheter tip intact. Pressure dressing applied, no signs of bleeding noted. Exitcare folder given to EMT. Patient left in stable condition via ambulance with 2 insolvency practitioner present.
== END 2021-10-28 16:41 | DRG 871 ==
LOC: ER 16:44 → MEDSG1 20:50 → TELE1 23:28 → MEDSG1 10-27 15:13
PROVIDERS: ADMIT Registered Nurse; ATTEND Nurse Practitioner Acute Care
DX: A41.9 Sepsis, unspecified organism (principal); G93.41 Metabolic encephalopathy; I69.351 Hemiplegia and hemiparesis following cerebral infarction affecting right dominant side; G45.9 Transient cerebral ischemic attack, unspecified; Z20.822 Contact with and (suspected) exposure to COVID-19; E78.5 Hyperlipidemia, unspecified; G40.909 Epilepsy, unspecified, not intractable, without status epilepticus; Z66 Do not resuscitate; Z88.5 Allergy status to narcotic agent; Z88.0 Allergy status to penicillin; Z79.82 Long term (current) use of aspirin; Z79.899 Other long term (current) drug therapy; Z98.890 Other specified postprocedural states; D72.829 Elevated white blood cell count, unspecified; M62.838 Other muscle spasm; G31.9 Degenerative disease of nervous system, unspecified; I10 Essential (primary) hypertension
CPT/HCPCS: 36415; 70450-TC; 70551-TC; 71045-TC; 80048-TC; 80053-TC; 80061-TC; 80076-TC; 80177; 81001; 82962-TC; 83735-TC; 84100-TC; 84443-TC; 85025-TC; 87040-TC; 87081-TC; 87086-TC; 92507-TC; 92521; 92526; 92611-TC; 93307-TC; 93880-TC; 97110-TC; 97112-TC; 97530-TC; A4216; A6403; C9113; C9803; G0378; J0360; J1650; J1956; J7030; J7040; J7050; J7120

== ENCOUNTER 2023-11-15 17:58 | Inpatient (IN) | payer MEDICARE, OTHER ==
[~2023-11-15] VITALS: Ht 162.6 cm; Wt 63.5 kg
[~2023-11-15 17:58] MED LIST: ASPI-1169 PO; ATOR80TA PO; BACL20TA PO; CALC-1180 PO; CHOL200013 PO; CLOP75TA15 PO; CRAN3875 PO; DOCU-141 PO; DONE10TA11 PO; FOLI0.8C PO; LACO50TA2 PO; LEVE1000 PO; LEVO137T24 PO; LEVO500T90 PO; METO25TA4 PO; MULT-134 PO; OMEG-88 PO; POTA-10 PO; TOPI100T PO
[2023-11-15] MEDS ORDERED: ONDA4TAB5 PO (19:10)
[2023-11-15] MEDS ORDERED: MAGN400O6 PO (19:10)
[2023-11-15] MEDS ORDERED: ACET-2030 PO (19:10)
[2023-11-15] MEDS ORDERED: LACO200T2 PO (19:10)
[2023-11-15] MEDS ORDERED: LEVO150T8 PO (19:10)
[2023-11-15] MEDS ORDERED: TOBR5DRO2 RIGHTEYE (19:10)
[2023-11-15] MEDS ORDERED: ACET325T53 PO (19:10)
[2023-11-15] MEDS ORDERED: CRAN300T PO (19:10)
[2023-11-15] MEDS ORDERED: HYDR-3976 PO (19:10)
[2023-11-15] MEDS ORDERED: ZINC56.713 TP (19:10)
[2023-11-15] MEDS ORDERED: PROP15DR RIGHTEYE (19:10)
[2023-11-15 19:18] LABS: BASOPHILS % (AUTO) 0.3 % (0.0-2.0); EOSINOPHILS # (AUTO) 0.2 K/uL (0.0-0.7); EOSINOPHILS % (AUTO) 2.7 % (0.0-6.0); HEMATOCRIT 43 % (33-45); HEMOGLOBIN 13.7 g/dL (11.5-14.8); LYMPHOCYTES # (AUTO) 3.4 K/uL (0.8-4.8); LYMPHOCYTES % (AUTO) 38.6 % (20.0-44.0); MEAN CORPUSCULAR HEMOGLOBIN 32 PG (26.0-33.0); MEAN CORPUSCULAR HGB CONC 32 g/dl (31.0-36.0); MEAN CORPUSCULAR VOLUME 98 fL (82-100); MONOCYTES # (AUTO) 0.6 K/uL (0.1-1.30); MONOCYTES % (AUTO) 6.9 % (2.0-12.0); NEUTROPHILS # (AUTO) 4.5 K/uL (1.8-8.9); NEUTROPHILS % (AUTO) 51.5 % (43.0-81.0); PLATELET COUNT (AUTO) 281 K/uL (150-450); RED BLOOD CELL COUNT(AUTO) 4.37 MIL/uL (4.0-5.2); RED CELL DISTRIBUTION WIDTH 12.7 % (11.5-15.0); WHITE BLOOD COUNT (AUTO) 8.7 K/uL (4.3-11.0)
[2023-11-15 19:38] LABS: MAGNESIUM 2.3 mg/dL (1.8-2.4)
[2023-11-15 19:53] LABS: CALCIUM, SERUM 9.2 mg/dL (8.5-10.1); CARBON DIOXIDE 23 mmol/L (21-32); CHLORIDE 111 mmol/L (98-107); CREATININE 0.7 mg/dL (0.6-1.3); GLUCOSE 100 mg/dL (74-106); SODIUM SERUM 142 mmol/L (136-145); UREA NITROGEN, BLOOD 11 mg/dL (7-18)
[2023-11-15 19:58] LABS: ALANINE AMINOTRANSFERASE 45 U/L (12-78); ALBUMIN 3.2 g/dL (3.4-5.0); ALKALINE PHOSPHATASE 117 U/L (46-116); ASPARTATE AMINOTRANSFERASE 37 U/L (15-37); BILIRUBIN,DIRECT 0.1 mg/dL (0.0-0.2); BILIRUBIN,TOTAL 0.2 mg/dL (0.2-1.0); LIPASE 51 U/L (16-77); TOTAL PROTEIN, SERUM 6.7 g/dL (6.4-8.2)
[2023-11-15 20:45] VITALS: BP 136/68; TEMP 98.2; O2SAT 97
[2023-11-15] MEDS: IV D5/0.45 NACL 1,000 ML IV PRN (21:26)
[2023-11-15] MEDS ORDERED: Z GUARD REMEDY 4 OZ OINT TP PRN (21:30)
[2023-11-15] MEDS ORDERED: ONDANSETRON HCL/PF 4 MG/2 ML VIAL IVP PRN (21:30)
[2023-11-15] MEDS ORDERED: ACETAMINOPHEN 650 MG/SUPP.RECT RC PRN (21:30)
[2023-11-15] MEDS: PANTOPRAZOLE 40 MG VIAL IV SCH (21:30)
[2023-11-15] MEDS: ENOXAPARIN SODIUM 40 MG/0.4 ML DISP.SYRIN SQ SCH (21:31)
[2023-11-16 06:45] LABS: BASOPHILS % (AUTO) 0.3 % (0.0-2.0); EOSINOPHILS # (AUTO) 0.3 K/uL (0.0-0.7); EOSINOPHILS % (AUTO) 3.7 % (0.0-6.0); HEMATOCRIT 45 % (33-45); HEMOGLOBIN 14.4 g/dL (11.5-14.8); LYMPHOCYTES # (AUTO) 3.2 K/uL (0.8-4.8); MEAN CORPUSCULAR HEMOGLOBIN 32 PG (26.0-33.0); MEAN CORPUSCULAR HGB CONC 32 g/dl (31.0-36.0); MEAN CORPUSCULAR VOLUME 99 fL (82-100); MONOCYTES # (AUTO) 0.5 K/uL (0.1-1.30); MONOCYTES % (AUTO) 5.8 % (2.0-12.0); NEUTROPHILS # (AUTO) 4.6 K/uL (1.8-8.9); NEUTROPHILS % (AUTO) 53.2 % (43.0-81.0); PLATELET COUNT (AUTO) 271 K/uL (150-450); RED CELL DISTRIBUTION WIDTH 12.9 % (11.5-15.0); WHITE BLOOD COUNT (AUTO) 8.7 K/uL (4.3-11.0)
[2023-11-16 07:54] LABS: CALCIUM, SERUM 9.5 mg/dL (8.5-10.1); CREATININE 0.7 mg/dL (0.6-1.3); MAGNESIUM 2.5 mg/dL (1.8-2.4); PHOSPHORUS 3.8 mg/dL (2.5-4.9); POTASSIUM 3.6 mmol/L (3.5-5.1)
[2023-11-16 08:00] VITALS: BP 172/84; TEMP 98.6; O2SAT 97
[2023-11-16] MEDS: hydrALAZINE HCL IV 20 MG VIAL IV PRN (08:51)
[2023-11-16 09:30] VITALS: BP 165/82
[2023-11-16] MEDS: NEOMY SULF/BACITRAC ZN/POLY 15 GM TUBE TP SCH (10:27)
[2023-11-16 13:18] VITALS: BP 155/85
[2023-11-16 16:00] VITALS: BP 130/58; TEMP 98.8; O2SAT 100
[2023-11-16] MEDS: CLOTRIMAZOLE 1% 15 GM TUBE TP SCH (16:37)
[2023-11-16] MEDS: LEVETIRACETAM (500MG) 1,500 MG in IV NS 0.9% 85 ML IV SCH (17:06)
[2023-11-16 20:04] VITALS: BP 146/64; TEMP 98.2; O2SAT 92
[2023-11-17 06:53] LABS: BASOPHILS % (AUTO) 0.2 % (0.0-2.0); HEMATOCRIT 41 % (33-45); HEMOGLOBIN 13.4 g/dL (11.5-14.8); LYMPHOCYTES # (AUTO) 2.4 K/uL (0.8-4.8); MEAN CORPUSCULAR HEMOGLOBIN 32 PG (26.0-33.0); MEAN CORPUSCULAR HGB CONC 32 g/dl (31.0-36.0); MEAN CORPUSCULAR VOLUME 98 fL (82-100); MONOCYTES # (AUTO) 1.1 K/uL (0.1-1.30); MONOCYTES % (AUTO) 6.4 % (2.0-12.0); NEUTROPHILS # (AUTO) 14.5 K/uL (1.8-8.9); NEUTROPHILS % (AUTO) 80.4 % (43.0-81.0); PLATELET COUNT (AUTO) 346 K/uL (150-450); RED BLOOD CELL COUNT(AUTO) 4.23 MIL/uL (4.0-5.2); RED CELL DISTRIBUTION WIDTH 13.1 % (11.5-15.0)
[2023-11-17 07:03] LABS: CALCIUM, SERUM 9.2 mg/dL (8.5-10.1); CREATININE 0.8 mg/dL (0.6-1.3); MAGNESIUM 2.1 mg/dL (1.8-2.4); PHOSPHORUS 3.2 mg/dL (2.5-4.9); POTASSIUM 3.5 mmol/L (3.5-5.1)
[2023-11-17 08:00] VITALS: BP 158/63; TEMP 99; O2SAT 96
[2023-11-17 16:00] VITALS: BP 144/70; TEMP 99.3; O2SAT 97
[2023-11-17 20:00] VITALS: BP 144/75; TEMP 99; O2SAT 96
[2023-11-18 07:35] LABS: BASOPHILS % (AUTO) 0.1 % (0.0-2.0); HEMATOCRIT 36 % (33-45); LYMPHOCYTES # (AUTO) 2.2 K/uL (0.8-4.8); LYMPHOCYTES % (AUTO) 13.4 % (20.0-44.0); MEAN CORPUSCULAR HEMOGLOBIN 32 PG (26.0-33.0); MEAN CORPUSCULAR HGB CONC 33 g/dl (31.0-36.0); MEAN CORPUSCULAR VOLUME 97 fL (82-100); MONOCYTES # (AUTO) 1.4 K/uL (0.1-1.30); MONOCYTES % (AUTO) 8.4 % (2.0-12.0); NEUTROPHILS # (AUTO) 12.9 K/uL (1.8-8.9); NEUTROPHILS % (AUTO) 78.1 % (43.0-81.0); PLATELET COUNT (AUTO) 243 K/uL (150-450); RED CELL DISTRIBUTION WIDTH 12.6 % (11.5-15.0); WHITE BLOOD COUNT (AUTO) 16.5 K/uL (4.3-11.0)
[2023-11-18 07:46] LABS: CALCIUM, SERUM 8.6 mg/dL (8.5-10.1); CREATININE 0.7 mg/dL (0.6-1.3); POTASSIUM 3.2 mmol/L (3.5-5.1)
[2023-11-18 08:17] VITALS: BP 160/74; TEMP 99.1; O2SAT 97
[2023-11-18] MEDS: POTASSIUM CHLORIDE 20 MEQ POWDER PACKET PO ONE (09:15)
[2023-11-18] MEDS: PANTOPRAZOLE 40 MG/PACK PACK PO SCH (09:15)
[2023-11-18 16:01] VITALS: BP 120/98; TEMP 99; O2SAT 97
[2023-11-18] MEDS ORDERED: SULF1TAB48 PO (17:53)
[2023-11-18 20:00] VITALS: BP 146/67; TEMP 98.6; O2SAT 95
[2023-11-18] MEDS: LEVETIRACETAM SOL (5 ML) 100 MG/ML UDC GT SCH (20:27)
[2023-11-19 07:30] VITALS: BP 160/72; TEMP 99.9; O2SAT 95
[2023-11-19] MEDS: PANTOPRAZOLE 40 MG TABLET.DR PO SCH (09:07)
[2023-11-19] MEDS: LEVETIRACETAM (250 MG) 250 MG TABLET PO SCH (09:08)
[2023-11-19 11:11] VITALS: BP 160/72; TEMP 99.9; O2SAT 95
[2023-11-19] MEDS: TOPIRAMATE 100 MG TABLET PO SCH (17:48)
[2023-11-19] MEDS: TOBRAMYCIN/DEXAMETH OPHTH SUSP 5 ML BOTTLE RIGHTEYE SCH (17:50)
[2023-11-19] MEDS ORDERED: LACOSAMIDE 50 MG TABLET PO SCH (21:00)
[2023-11-19] MEDS ORDERED: ATORVASTATIN 40 MG TABLET PO SCH (22:00)
[2023-11-19] MEDS ORDERED: DONEPEZIL 5 MG TABLET PO SCH (22:00)
[2023-11-20] MEDS ORDERED: LEVOTHYROXINE SODIUM 75 MCG TABLET PO SCH (07:30)
[2023-11-20] MEDS ORDERED: CLOPIDOGREL BISULFATE 75 MG TABLET PO SCH (09:00)
[2023-11-20] MEDS ORDERED: ASPIRIN 81 MG TAB.CHEW PO SCH (09:00)
[2023-11-20] MEDS ORDERED: METOPROLOL SUCCINATE 25 MG TAB.SR.24H PO SCH (09:00)
== END 2023-11-19 18:05 | DRG 641 ==
LOC: ER 18:17 → MED 20:12
PROVIDERS: ADMIT Nurse Practitioner Family; ATTEND Nurse Practitioner Acute Care
DX: R62.7 Adult failure to thrive (principal); E87.0 Hyperosmolality and hypernatremia; N39.0 Urinary tract infection, site not specified; I10 Essential (primary) hypertension; G40.909 Epilepsy, unspecified, not intractable, without status epilepticus; Z66 Do not resuscitate; F03.90 Unspecified dementia, unspecified severity, without behavioral disturbance, psychotic disturbance, mood disturbance, and anxiety; Z20.822 Contact with and (suspected) exposure to COVID-19; E78.5 Hyperlipidemia, unspecified; Z87.440 Personal history of urinary (tract) infections; Z87.81 Personal history of (healed) traumatic fracture; Z98.890 Other specified postprocedural states; I69.398 Other sequelae of cerebral infarction; Z88.0 Allergy status to penicillin; Z88.5 Allergy status to narcotic agent; Z79.890 Hormone replacement therapy; Z79.82 Long term (current) use of aspirin; Z79.899 Other long term (current) drug therapy; M62.838 Other muscle spasm; E55.9 Vitamin D deficiency, unspecified; E03.9 Hypothyroidism, unspecified; Z79.02 Long term (current) use of antithrombotics/antiplatelets; D64.9 Anemia, unspecified
CPT/HCPCS: 36415; 71045-TC; 80048-TC; 80061-TC; 80076-TC; 83690-TC; 83735-TC; 83880; 84100-TC; 84484-TC; 85025-TC; 87081-TC; 92526; 92611-TC; A4223; C9113; G0378; J0360; J1650; J1953; J3490; J7030

== ENCOUNTER 2024-06-21 22:16 | Inpatient (IN) | payer MEDICARE, OTHER ==
[~2024-06-21] VITALS: Ht 160 cm; Wt 62.6 kg
[~2024-06-21 22:16] MED LIST changes: +ACET-2030 PO; +ACET325T53 PO; +CRAN300T PO; -CRAN3875 PO; +HYDR-3976 PO; +LACO200T2 PO; -LACO50TA2 PO; -LEVO137T24 PO; +LEVO150T8 PO; -LEVO500T90 PO; +MAGN400O6 PO; +ONDA4TAB5 PO; +PROP15DR RIGHTEYE; +SULF1TAB48 PO; +TOBR5DRO2 RIGHTEYE; +ZINC56.713 TP
[2024-06-22] MEDS: LINEZOLID RTU BAG 600 MG in PREMIX 1 EA IV SCH (02:30)
[2024-06-22] MEDS: VANCOMYCIN 1 GM in IV D5W 250 ML IV ONE (02:30)
[2024-06-22] MEDS ORDERED: ALBUTEROL FS 2.5 MG/3 ML VIAL.NEB NEB PRN (03:00)
[2024-06-22] MEDS ORDERED: Z GUARD REMEDY 4 OZ OINT TP PRN (03:00)
[2024-06-22] MEDS ORDERED: MAGNESIUM HYDROXIDE 30 ML UDC PO PRN ×2 (03:00→07:00)
[2024-06-22] MEDS ORDERED: MAG HYDROX/AL HYDROX/SIMETH 30 ML UDC PO PRN (03:00)
[2024-06-22] MEDS ORDERED: ACETAMINOPHEN 325 MG TABLET PO PRN ×2 (03:00→07:00)
[2024-06-22] MEDS: ENOXAPARIN SODIUM 40 MG/0.4 ML DISP.SYRIN SQ SCH (03:00)
[2024-06-22] MEDS ORDERED: ONDANSETRON HCL/PF 4 MG/2 ML VIAL IVP PRN ×2 (03:00→08:30)
[2024-06-22] MEDS ORDERED: IPRATROPIUM NEB FS 0.5 MG/2.5 ML AMPUL.NEB NEB PRN (03:00)
[2024-06-22 03:06] LABS: BASOPHILS % (AUTO) 0.3 % (0.0-2.0); HEMATOCRIT 43 % (33-45); HEMOGLOBIN 13.7 g/dL (11.5-14.8); LYMPHOCYTES # (AUTO) 1.9 K/uL (0.8-4.8); LYMPHOCYTES % (AUTO) 16.9 % (20.0-44.0); MEAN CORPUSCULAR HEMOGLOBIN 31 PG (26.0-33.0); MEAN CORPUSCULAR HGB CONC 32 g/dl (31.0-36.0); MEAN CORPUSCULAR VOLUME 98 fL (82-100); MONOCYTES # (AUTO) 0.8 K/uL (0.1-1.30); MONOCYTES % (AUTO) 7.3 % (2.0-12.0); NEUTROPHILS # (AUTO) 8.6 K/uL (1.8-8.9); NEUTROPHILS % (AUTO) 75.5 % (43.0-81.0); PLATELET COUNT (AUTO) 198 K/uL (150-450); RED BLOOD CELL COUNT(AUTO) 4.36 MIL/uL (4.0-5.2); RED CELL DISTRIBUTION WIDTH 12.8 % (11.5-15.0); WHITE BLOOD COUNT (AUTO) 11.4 K/uL (4.3-11.0)
[2024-06-22 03:18] LABS: CALCIUM, SERUM 9.2 mg/dL (8.5-10.1); CARBON DIOXIDE 23 mmol/L (21-32); CHLORIDE 113 mmol/L (98-107); CREATININE 0.7 mg/dL (0.6-1.3); GLUCOSE 123 mg/dL (74-106); POTASSIUM 3.9 mmol/L (3.5-5.1); SODIUM SERUM 146 mmol/L (136-145); UREA NITROGEN, BLOOD 23 mg/dL (7-18)
[2024-06-22] MEDS ORDERED: VANCOMYCIN 1 GM /D5W 250 ML PB IV ONE (03:27)
[2024-06-22 03:28] LABS: LACTIC ACID 1.2 mmol/L (0.4-2.0)
[2024-06-22] MEDS ORDERED: LINEZOLID RTU BAG 300 ML IV ONE (03:50)
[2024-06-22] MEDS ORDERED: ENOXAPARIN SODIUM 40 MG/0.4 ML DISP.SYRIN SQ ONE (04:08)
[2024-06-22] MEDS: LEVOTHYROXINE SODIUM 50 MCG TABLET PO SCH (08:03)
[2024-06-22] MEDS ORDERED: HYDROCODONE/APAP 5/325MG TABLET PO PRN (08:30)
[2024-06-22] MEDS ORDERED: NYST15PO4 TP (08:31)
[2024-06-22] MEDS ORDERED: PANT40TA2 PO (08:31)
[2024-06-22 08:46] LABS: BASOPHILS % (AUTO) 0.3 % (0.0-2.0); EOSINOPHILS % (AUTO) 0.1 % (0.0-6.0); HEMATOCRIT 45 % (33-45); HEMOGLOBIN 14.4 g/dL (11.5-14.8); LYMPHOCYTES # (AUTO) 3.7 K/uL (0.8-4.8); LYMPHOCYTES % (AUTO) 32.9 % (20.0-44.0); MEAN CORPUSCULAR HEMOGLOBIN 32 PG (26.0-33.0); MEAN CORPUSCULAR HGB CONC 32 g/dl (31.0-36.0); MEAN CORPUSCULAR VOLUME 98 fL (82-100); MONOCYTES % (AUTO) 8.6 % (2.0-12.0); NEUTROPHILS # (AUTO) 6.6 K/uL (1.8-8.9); NEUTROPHILS % (AUTO) 58.1 % (43.0-81.0); PLATELET COUNT (AUTO) 196 K/uL (150-450); RED BLOOD CELL COUNT(AUTO) 4.56 MIL/uL (4.0-5.2); RED CELL DISTRIBUTION WIDTH 13.2 % (11.5-15.0); WHITE BLOOD COUNT (AUTO) 11.4 K/uL (4.3-11.0)
[2024-06-22 08:54] LABS: CALCIUM, SERUM 9.1 mg/dL (8.5-10.1); CREATININE 0.8 mg/dL (0.6-1.3); MAGNESIUM 2.3 mg/dL (1.8-2.4); PHOSPHORUS 4.1 mg/dL (2.5-4.9); POTASSIUM 3.9 mmol/L (3.5-5.1)
[2024-06-22] MEDS ORDERED: CEFTRIAXONE 1 G in IV D5W 50 ML IV SCH (09:00)
[2024-06-22] MEDS: METOPROLOL SUCCINATE 25 MG TAB.SR.24H PO SCH (09:00)
[2024-06-22] MEDS ORDERED: CLOPIDOGREL BISULFATE 75 MG TABLET PO SCH (09:00)
[2024-06-22] MEDS: LACOSAMIDE 50 MG TABLET PO SCH (09:00)
[2024-06-22] MEDS ORDERED: BACLOFEN (10 MG) 10 MG TABLET ONE (09:24)
[2024-06-22] MEDS ORDERED: LEVOTHYROXINE SODIUM 50 MCG TABLET ONE (09:25)
[2024-06-22] MEDS ORDERED: DOCUSATE SODIUM 100 MG CAPSULE PO ONE ×2 (09:25→09:31)
[2024-06-22] MEDS ORDERED: DONEPEZIL 5 MG TABLET ONE (09:26)
[2024-06-22] MEDS ORDERED: TOPIRAMATE 25 MG TABLET ONE (09:26)
[2024-06-22] MEDS ORDERED: LEVETIRACETAM (250 MG) 250 MG TABLET ONE (09:26)
[2024-06-22] MEDS ORDERED: ASPIRIN 81 MG TAB.CHEW ONE (09:27)
[2024-06-22] MEDS: BACLOFEN (10 MG) 10 MG TABLET PO SCH (09:50)
[2024-06-22] MEDS: DONEPEZIL 5 MG TABLET PO SCH (09:50)
[2024-06-22] MEDS: DOCUSATE SODIUM 100 MG CAPSULE PO SCH (09:50)
[2024-06-22] MEDS: ASPIRIN 81 MG TAB.CHEW PO SCH (09:50)
[2024-06-22] MEDS: LEVETIRACETAM (250 MG) 250 MG TABLET PO SCH (09:50)
[2024-06-22] MEDS: TOPIRAMATE 25 MG TABLET PO SCH (09:50)
[2024-06-22] MEDS: LEVOFLOXACIN (250MG) 250 MG TABLET PO SCH (10:01)
[2024-06-22] MEDS ORDERED: LEVOFLOXACIN (250MG) 250 MG TABLET ONE (12:23)
[2024-06-22 20:00] VITALS: BP 114/62; TEMP 98.2; O2SAT 97
[2024-06-23] VITALS: BP 118/13; TEMP 98.2; O2SAT 97
[2024-06-23 04:00] VITALS: BP 118/13; TEMP 98.2; O2SAT 97
[2024-06-23 08:00] VITALS: BP 132/74; TEMP 97.9; O2SAT 96
[2024-06-23 10:43] LABS: BASOPHILS % (AUTO) 0.2 % (0.0-2.0); EOSINOPHILS % (AUTO) 0.1 % (0.0-6.0); HEMATOCRIT 42 % (33-45); HEMOGLOBIN 13.7 g/dL (11.5-14.8); LYMPHOCYTES # (AUTO) 1.5 K/uL (0.8-4.8); MEAN CORPUSCULAR HEMOGLOBIN 32 PG (26.0-33.0); MEAN CORPUSCULAR HGB CONC 33 g/dl (31.0-36.0); MEAN CORPUSCULAR VOLUME 97 fL (82-100); MONOCYTES # (AUTO) 0.4 K/uL (0.1-1.30); MONOCYTES % (AUTO) 6.1 % (2.0-12.0); NEUTROPHILS # (AUTO) 4.8 K/uL (1.8-8.9); NEUTROPHILS % (AUTO) 71.6 % (43.0-81.0); PLATELET COUNT (AUTO) 168 K/uL (150-450); RED BLOOD CELL COUNT(AUTO) 4.29 MIL/uL (4.0-5.2); RED CELL DISTRIBUTION WIDTH 12.9 % (11.5-15.0); WHITE BLOOD COUNT (AUTO) 6.6 K/uL (4.3-11.0)
[2024-06-23 12:00] VITALS: BP 118/63; TEMP 97.7; O2SAT 96
[2024-06-23 12:25] LABS: CALCIUM, SERUM 9.2 mg/dL (8.5-10.1); CREATININE 0.7 mg/dL (0.6-1.3); MAGNESIUM 2.2 mg/dL (1.8-2.4); PHOSPHORUS 3.8 mg/dL (2.5-4.9); POTASSIUM 3.6 mmol/L (3.5-5.1)
[2024-06-23 16:00] VITALS: BP 116/55; TEMP 98; O2SAT 98
[2024-06-23 20:00] VITALS: BP 118/57; TEMP 98.7; O2SAT 97
[2024-06-24] VITALS: BP 129/53; TEMP 98.6; O2SAT 97
[2024-06-24 04:00] VITALS: BP 109/56; TEMP 98.2; O2SAT 96
[2024-06-24 08:22] VITALS: BP 118/57; TEMP 98.7; O2SAT 97
[2024-06-24] MEDS ORDERED: LEVO250T59 PO (11:42)
[2024-06-24 12:33] VITALS: BP 129/62; TEMP 98.6; O2SAT 97
[2024-06-24 12:48] LABS: BASOPHILS % (AUTO) 0.2 % (0.0-2.0); EOSINOPHILS % (AUTO) 0.3 % (0.0-6.0); HEMATOCRIT 41 % (33-45); HEMOGLOBIN 13.2 g/dL (11.5-14.8); LYMPHOCYTES # (AUTO) 2.4 K/uL (0.8-4.8); LYMPHOCYTES % (AUTO) 38.7 % (20.0-44.0); MEAN CORPUSCULAR HEMOGLOBIN 32 PG (26.0-33.0); MEAN CORPUSCULAR HGB CONC 32 g/dl (31.0-36.0); MEAN CORPUSCULAR VOLUME 99 fL (82-100); MONOCYTES # (AUTO) 0.7 K/uL (0.1-1.30); MONOCYTES % (AUTO) 10.9 % (2.0-12.0); NEUTROPHILS # (AUTO) 3.1 K/uL (1.8-8.9); NEUTROPHILS % (AUTO) 49.9 % (43.0-81.0); PLATELET COUNT (AUTO) 148 K/uL (150-450); RED BLOOD CELL COUNT(AUTO) 4.12 MIL/uL (4.0-5.2); RED CELL DISTRIBUTION WIDTH 12.9 % (11.5-15.0); WHITE BLOOD COUNT (AUTO) 6.2 K/uL (4.3-11.0)
[2024-06-24 16:27] VITALS: BP 109/56; TEMP 98.2; O2SAT 96
== END 2024-06-24 16:36 | DRG 177 ==
LOC: ER 22:39 → TRANSITION 06-22 03:10 → TELE1 06-22 14:51
PROVIDERS: ADMIT Internal Medicine; ATTEND Internal Medicine
DX: J15.69 Pneumonia due to other Gram-negative bacteria (principal); G93.41 Metabolic encephalopathy; J96.01 Acute respiratory failure with hypoxia; E87.0 Hyperosmolality and hypernatremia; E03.9 Hypothyroidism, unspecified; E78.5 Hyperlipidemia, unspecified; E86.1 Hypovolemia; G40.909 Epilepsy, unspecified, not intractable, without status epilepticus; Z88.0 Allergy status to penicillin; Z86.73 Personal history of transient ischemic attack (TIA), and cerebral infarction without residual deficits; Z79.82 Long term (current) use of aspirin; I10 Essential (primary) hypertension; E86.0 Dehydration; M62.838 Other muscle spasm; F03.90 Unspecified dementia, unspecified severity, without behavioral disturbance, psychotic disturbance, mood disturbance, and anxiety
CPT/HCPCS: 36415; 71045-TC; 80048-TC; 83605-TC; 83735-TC; 84100-TC; 84484-TC; 85025-TC; 87040-TC; A4216; G0378; J1650; J2020; J2405; J3370; J7060

== ENCOUNTER 2024-10-22 13:09 | Inpatient (IN) | payer MEDICARE, OTHER ==
[~2024-10-22] VITALS: Ht 167.6 cm; Wt 57.7 kg
[~2024-10-22 13:09] MED LIST changes: -CLOP75TA15 PO; -HYDR-3976 PO; +LEVO250T59 PO; +NYST15PO4 TP; +PANT40TA2 PO; -SULF1TAB48 PO; -ZINC56.713 TP
[2024-10-22] MEDS ORDERED: CEFTRIAXONE 1GM BAG (ER ONLY) 50 ML IV ONE (14:26)
[2024-10-22] MEDS: CEFTRIAXONE 1GM BAG (ER ONLY) 50 ML IV ONE (14:28)
[2024-10-22 14:52] LABS: BASOPHILS % (AUTO) 0.2 % (0.0-2.0); EOSINOPHILS # (AUTO) 0.1 K/uL (0.0-0.7); EOSINOPHILS % (AUTO) 0.6 % (0.0-6.0); HEMATOCRIT 33 % (33-45); HEMOGLOBIN 10.7 g/dL (11.5-14.8); LYMPHOCYTES # (AUTO) 2.6 K/uL (0.8-4.8); LYMPHOCYTES % (AUTO) 20.4 % (20.0-44.0); MEAN CORPUSCULAR HEMOGLOBIN 33 PG (26.0-33.0); MEAN CORPUSCULAR HGB CONC 33 g/dl (31.0-36.0); MEAN CORPUSCULAR VOLUME 100 fL (82-100); MONOCYTES # (AUTO) 0.8 K/uL (0.1-1.30); MONOCYTES % (AUTO) 6.1 % (2.0-12.0); NEUTROPHILS # (AUTO) 9.1 K/uL (1.8-8.9); NEUTROPHILS % (AUTO) 72.7 % (43.0-81.0); PLATELET COUNT (AUTO) 355 K/uL (150-450); RED BLOOD CELL COUNT(AUTO) 3.27 MIL/uL (4.0-5.2); RED CELL DISTRIBUTION WIDTH 13.9 % (11.5-15.0); WHITE BLOOD COUNT (AUTO) 12.6 K/uL (4.3-11.0)
[2024-10-22] MEDS: AZITHROMYCIN 500 MG in IV D5W 250 ML IV ONE (15:00)
[2024-10-22] MEDS ORDERED: LACO100T2 PO (15:05)
[2024-10-22] MEDS ORDERED: IPRA0.2S49 IH (15:05)
[2024-10-22] MEDS ORDERED: ZINC454O5 TP (15:05)
[2024-10-22] MEDS ORDERED: HEPA50007 SQ (15:05)
[2024-10-22] MEDS ORDERED: SENN-261 PO (15:05)
[2024-10-22] MEDS ORDERED: VALS40TA12 PO (15:05)
[2024-10-22] MEDS ORDERED: OXYC10TA49 PO (15:05)
[2024-10-22] MEDS ORDERED: CALC-953 PO (15:05)
[2024-10-22] MEDS ORDERED: NALO0.4D4 NS (15:05)
[2024-10-22] MEDS ORDERED: LEVO112T7 PO (15:05)
[2024-10-22] MEDS ORDERED: BISA5TAB10 PO (15:05)
[2024-10-22 15:06] LABS: INR 1.01 (0.91-1.10); PARTIAL THROMBOPLASTIN TIME 28.1 SEC (24.3-34.3); PROTHROMBIN TIME 10.7 SECS (9.2-11.1)
[2024-10-22 15:10] LABS: LACTIC ACID 1.6 mmol/L (0.4-2.0)
[2024-10-22 15:16] LABS: ALBUMIN 2.2 g/dL (3.4-5.0); BILIRUBIN,DIRECT 0.1 mg/dL (0.0-0.2); BILIRUBIN,TOTAL 0.2 mg/dL (0.2-1.0); CALCIUM, SERUM 9.1 mg/dL (8.5-10.1); CREATININE 0.7 mg/dL (0.6-1.3); POTASSIUM 3.5 mmol/L (3.5-5.1); TOTAL PROTEIN, SERUM 6.5 g/dL (6.4-8.2)
[2024-10-22 17:08] VITALS: BP 130/68; TEMP 97; O2SAT 100
[2024-10-22] MEDS ORDERED: SENNOSIDES 8.6 MG TABLET PO PRN (18:30)
[2024-10-22] MEDS ORDERED: NALOXONE HCL 0.4 MG/ML AMPUL IV PRN (18:30)
[2024-10-22] MEDS ORDERED: ACETAMINOPHEN 325 MG TABLET PO PRN (18:30)
[2024-10-22] MEDS ORDERED: ONDANSETRON HCL/PF 4 MG/2 ML VIAL IVP PRN (18:30)
[2024-10-22] MEDS ORDERED: MAG HYDROX/AL HYDROX/SIMETH 30 ML UDC PO PRN (18:30)
[2024-10-22] MEDS ORDERED: oxyCODONE HCL SR 10MG TAB.SR.12H PO PRN (18:30)
[2024-10-22] MEDS: VALSARTAN 40 MG TABLET PO SCH (19:03)
[2024-10-22 20:00] VITALS: BP 145/57; TEMP 98.2; O2SAT 98
[2024-10-22] MEDS: LACOSAMIDE 50 MG TABLET PO SCH (20:57)
[2024-10-22] MEDS: LEVETIRACETAM (250 MG) 250 MG TABLET PO SCH (20:58)
[2024-10-22] MEDS: HEPARIN SODIUM, PORCINE 5000 UNITS/1 ML VIAL SQ SCH (20:59)
[2024-10-22] MEDS: ATORVASTATIN 40 MG TABLET PO SCH (22:56)
[2024-10-22] MEDS: DONEPEZIL 5 MG TABLET PO SCH (22:56)
[2024-10-23 04:00] VITALS: BP 109/55; TEMP 97.9; O2SAT 97
[2024-10-23] MEDS: POLYVINYL ALCOHOL 15 ML BOTTLE RIGHTEYE PRN (05:52)
[2024-10-23 06:39] LABS: BASOPHILS % (AUTO) 0.5 % (0.0-2.0); EOSINOPHILS # (AUTO) 0.1 K/uL (0.0-0.7); EOSINOPHILS % (AUTO) 1.1 % (0.0-6.0); HEMATOCRIT 36 % (33-45); HEMOGLOBIN 11.8 g/dL (11.5-14.8); LYMPHOCYTES % (AUTO) 25.2 % (20.0-44.0); MEAN CORPUSCULAR HEMOGLOBIN 33 PG (26.0-33.0); MEAN CORPUSCULAR HGB CONC 33 g/dl (31.0-36.0); MEAN CORPUSCULAR VOLUME 100 fL (82-100); MONOCYTES # (AUTO) 0.4 K/uL (0.1-1.30); MONOCYTES % (AUTO) 5.4 % (2.0-12.0); NEUTROPHILS # (AUTO) 5.5 K/uL (1.8-8.9); NEUTROPHILS % (AUTO) 67.8 % (43.0-81.0); PLATELET COUNT (AUTO) 374 K/uL (150-450); RED BLOOD CELL COUNT(AUTO) 3.62 MIL/uL (4.0-5.2); RED CELL DISTRIBUTION WIDTH 13.7 % (11.5-15.0); WHITE BLOOD COUNT (AUTO) 8.1 K/uL (4.3-11.0)
[2024-10-23 06:47] LABS: CALCIUM, SERUM 9.3 mg/dL (8.5-10.1); CREATININE 0.6 mg/dL (0.6-1.3); MAGNESIUM 2.3 mg/dL (1.8-2.4); PHOSPHORUS 4.4 mg/dL (2.5-4.9); POTASSIUM 3.6 mmol/L (3.5-5.1)
[2024-10-23 08:18] VITALS: BP 142/59; TEMP 97.6; O2SAT 100
[2024-10-23] MEDS: LEVOTHYROXINE SODIUM 112 MCG TABLET PO SCH (10:40)
[2024-10-23] MEDS: MULTIVIT W/MINERALS 1 TAB TABLET PO SCH (10:41)
[2024-10-23] MEDS: METOPROLOL SUCCINATE 25 MG TAB.SR.24H PO SCH (10:42)
[2024-10-23] MEDS: CALCIUM CARB 600MG /VIT D 1 EACH TABLET PO SCH (10:42)
[2024-10-23] MEDS: FOLIC ACID 1 MG TABLET PO SCH (10:42)
[2024-10-23] MEDS: CHOLECALCIFEROL 1,000 UNIT TABLET (VIT D3) PO SCH (10:43)
[2024-10-23] MEDS: PANTOPRAZOLE 40 MG TABLET.DR PO SCH (10:44)
[2024-10-23] MEDS: TOPIRAMATE 100 MG TABLET PO SCH (10:44)
[2024-10-23] MEDS: CEFTRIAXONE 1 G in IV D5W 50 ML IV SCH (13:39)
[2024-10-23] MEDS: AZITHROMYCIN 500 MG in IV D5W 250 ML IV SCH (15:48)
[2024-10-23 16:00] VITALS: BP 128/62; TEMP 97.9; O2SAT 100
[2024-10-23 20:33] VITALS: BP 116/50; TEMP 97; O2SAT 98
[2024-10-24 04:00] VITALS: BP 122/74; TEMP 97.3; O2SAT 96
[2024-10-24 06:54] LABS: BASOPHILS % (AUTO) 0.3 % (0.0-2.0); EOSINOPHILS # (AUTO) 0.1 K/uL (0.0-0.7); EOSINOPHILS % (AUTO) 0.8 % (0.0-6.0); HEMATOCRIT 35 % (33-45); HEMOGLOBIN 11.4 g/dL (11.5-14.8); LYMPHOCYTES # (AUTO) 2.4 K/uL (0.8-4.8); LYMPHOCYTES % (AUTO) 23.9 % (20.0-44.0); MEAN CORPUSCULAR HEMOGLOBIN 32 PG (26.0-33.0); MEAN CORPUSCULAR HGB CONC 33 g/dl (31.0-36.0); MEAN CORPUSCULAR VOLUME 98 fL (82-100); MONOCYTES # (AUTO) 0.6 K/uL (0.1-1.30); MONOCYTES % (AUTO) 6.3 % (2.0-12.0); NEUTROPHILS # (AUTO) 6.9 K/uL (1.8-8.9); NEUTROPHILS % (AUTO) 68.7 % (43.0-81.0); PLATELET COUNT (AUTO) 430 K/uL (150-450); RED BLOOD CELL COUNT(AUTO) 3.54 MIL/uL (4.0-5.2); RED CELL DISTRIBUTION WIDTH 13.6 % (11.5-15.0); WHITE BLOOD COUNT (AUTO) 10.1 K/uL (4.3-11.0)
[2024-10-24 07:23] LABS: CALCIUM, SERUM 9.3 mg/dL (8.5-10.1); CREATININE 0.6 mg/dL (0.6-1.3); POTASSIUM 3.7 mmol/L (3.5-5.1)
[2024-10-24 08:00] VITALS: BP 131/56; TEMP 98.1; O2SAT 99
[2024-10-24] MEDS ORDERED: LEVO500T90 PO (11:24)
[2024-10-24 12:00] VITALS: BP 110/61; TEMP 98.2
== END 2024-10-24 16:08 | DRG 194 ==
LOC: ER 13:21 → MEDSG1 15:13
PROVIDERS: ADMIT Nurse Practitioner Acute Care; ATTEND Internal Medicine
DX: J15.9 Unspecified bacterial pneumonia (principal); E44.0 Moderate protein-calorie malnutrition; F03.93 Unspecified dementia, unspecified severity, with mood disturbance; I69.351 Hemiplegia and hemiparesis following cerebral infarction affecting right dominant side; G40.909 Epilepsy, unspecified, not intractable, without status epilepticus; Z20.822 Contact with and (suspected) exposure to COVID-19; I10 Essential (primary) hypertension; E78.5 Hyperlipidemia, unspecified; E03.9 Hypothyroidism, unspecified; E88.09 Other disorders of plasma-protein metabolism, not elsewhere classified; F32.9 Major depressive disorder, single episode, unspecified; Z79.899 Other long term (current) drug therapy; Z88.0 Allergy status to penicillin; Z88.5 Allergy status to narcotic agent; Z87.81 Personal history of (healed) traumatic fracture; Z98.890 Other specified postprocedural states; Z96.641 Presence of right artificial hip joint; M62.838 Other muscle spasm; Z79.01 Long term (current) use of anticoagulants; Z79.51 Long term (current) use of inhaled steroids; Z79.890 Hormone replacement therapy
CPT/HCPCS: 36415; 71250-TC; 80048-TC; 80076-TC; 83605-TC; 83735-TC; 84100-TC; 85025-TC; 85730-TC; 87040-TC; 87081-TC; 97110-TC; 97530-TC; A4223; G0378; J0456; J0696; J1644; J7050; J7060

== ENCOUNTER 2024-12-25 20:03 | Inpatient (IN) | payer MEDICARE, MEDICAID ==
[~2024-12-25] VITALS: Ht 175.3 cm; Wt 59.0 kg
[~2024-12-25 20:03] MED LIST changes: -ASPI-1169 PO; -BACL20TA PO; +BISA5TAB10 PO; -CALC-1180 PO; +CALC-953 PO; -DOCU-141 PO; +HEPA50007 SQ; +IPRA0.2S49 IH; +LACO100T2 PO; -LACO200T2 PO; +LEVO112T7 PO; -LEVO150T8 PO; -LEVO250T59 PO; +LEVO500T90 PO; +NALO0.4D4 NS; -NYST15PO4 TP; +OXYC10TA49 PO; -POTA-10 PO; +SENN-261 PO; -TOBR5DRO2 RIGHTEYE; +VALS40TA12 PO; +ZINC454O5 TP
[2024-12-25 21:31] LABS: PLATELET COUNT (AUTO) 226 K/uL (150-450); RED BLOOD CELL COUNT(AUTO) 3.31 MIL/uL (4.0-5.2); RED CELL DISTRIBUTION WIDTH 14.0 % (11.5-15.0); WHITE BLOOD COUNT (AUTO) 9.1 K/uL (4.3-11.0)
[2024-12-25 21:36] LABS: CALCIUM, SERUM 8.9 mg/dL (8.5-10.1); CREATININE 0.6 mg/dL (0.6-1.3); SODIUM SERUM 137 mmol/L (136-145); UREA NITROGEN, BLOOD 19 mg/dL (7-18)
[2024-12-25 21:42] LABS: ALCOHOL, BLOOD < 3 mg/dL (0-10); ASPARTATE AMINOTRANSFERASE 16 U/L (15-37); TOTAL PROTEIN, SERUM 6.7 g/dL (6.4-8.2)
[2024-12-25 22:28] LABS: APPEARANCE,URINE SLIGHTLY CLOUDY (CLEAR); BLOOD, URINE TRACE-INTA Ery/uL (NEGATIVE); LEUKOCYTE ESTERASE ,URINE 3+ (NEGATIVE); NITRITE, URINE POSITIVE (NEGATIVE); UGLUCOSE NEGATIVE (NEGATIVE)
[2024-12-25 22:30] LABS: AMPHETAMINE, URINE NEGATIVE (NEGATIVE); BARBITURATE, URINE NEGATIVE (NEGATIVE); BENZODIAZEPINE, URINE NEGATIVE (NEGATIVE); CANNABINOID, URINE NEGATIVE (NEGATIVE); COCCAINE, URINE NEGATIVE (NEGATIVE); OPIATE, URINE NEGATIVE (NEGATIVE)
[2024-12-25] MEDS ORDERED: TOPI100T PO (22:56)
[2024-12-25] MEDS ORDERED: [UNRECOGNIZED DRUG - CODE] IV (22:56)
[2024-12-25] MEDS ORDERED: ACET325T53 PO (22:56)
[2024-12-25] MEDS ORDERED: PROP10DR2 RIGHTEYE (22:56)
[2024-12-25] MEDS ORDERED: ACETAMINOPHEN 325 MG TABLET PO PRN (23:00)
[2024-12-25] MEDS ORDERED: MAGNESIUM HYDROXIDE 30 ML UDC PO PRN (23:00)
[2024-12-25] MEDS ORDERED: ONDANSETRON HCL/PF 4 MG/2 ML VIAL IVP PRN (23:00)
[2024-12-25] MEDS: ENOXAPARIN SODIUM 40 MG/0.4 ML DISP.SYRIN SQ SCH (23:00)
[2024-12-25] MEDS ORDERED: MAG HYDROX/AL HYDROX/SIMETH 30 ML UDC PO PRN (23:00)
[2024-12-25] MEDS ORDERED: VALS40TA4 PO (23:05)
[2024-12-25] MEDS ORDERED: LEVE250T2 PO (23:05)
[2024-12-25] MEDS ORDERED: DONE23TA3 PO (23:13)
[2024-12-25] MEDS ORDERED: LEVO112T5 PO (23:13)
[2024-12-25] MEDS ORDERED: FOLI20CA PO (23:13)
[2024-12-25] MEDS ORDERED: [UNRECOGNIZED DRUG - CODE] PO (23:13)
[2024-12-25] MEDS ORDERED: PANT40TA49 PO (23:13)
[2024-12-25 23:24] LABS: ADD URINE CULTURE YES
[2024-12-25] MEDS ORDERED: CEFTRIAXONE 1GM BAG (ER ONLY) 50 ML IV ONE (23:50)
[2024-12-25] MEDS: CEFTRIAXONE 1 G in IV D5W 50 ML IV SCH (23:59)
[2024-12-26] MEDS ORDERED: ENOXAPARIN SODIUM 40 MG/0.4 ML DISP.SYRIN SQ ONE (00:04)
[2024-12-26] MEDS: IV NS 0.9% 1,000 ML IV PRN (02:12)
[2024-12-26 04:00] VITALS: BP 127/52; TEMP 97.9; O2SAT 100
[2024-12-26] MEDS: PANTOPRAZOLE 40 MG TABLET.DR PO SCH (07:41)
[2024-12-26 08:00] VITALS: BP 115/95; TEMP 97.7; O2SAT 100
[2024-12-26 12:00] VITALS: BP 118/78; TEMP 98; O2SAT 100
[2024-12-26 12:18] LABS: ASPARTATE AMINOTRANSFERASE 18.0 U/L (15-37); CALCIUM, SERUM 8.8 mg/dL (8.5-10.1); CREATININE 0.5 mg/dL (0.6-1.3); PHOSPHORUS 3.9 mg/dL (2.5-4.9); SODIUM SERUM 143.0 mmol/L (136-145); TOTAL PROTEIN, SERUM 7.0 g/dL (6.4-8.2); UREA NITROGEN, BLOOD 12.0 mg/dL (7-18)
[2024-12-26 13:33] LABS: PLATELET COUNT (AUTO) 235 K/uL (150-450); RED BLOOD CELL COUNT(AUTO) 3.80 MIL/uL (4.0-5.2); RED CELL DISTRIBUTION WIDTH 14.0 % (11.5-15.0); WHITE BLOOD COUNT (AUTO) 7.2 K/uL (4.3-11.0)
[2024-12-26 20:00] VITALS: BP 130/66; TEMP 98.6; O2SAT 100
[2024-12-26] MEDS: TOBRAMYCIN/DEXAMETH OPHTH DORPS 2.5 ML BOTTLE RIGHTEYE SCH (21:03)
[2024-12-27 04:57] VITALS: BP 146/100; TEMP 97.7
[2024-12-27 08:00] VITALS: BP 156/82; TEMP 98.8
[2024-12-27] MEDS: ENSURE ENLIVE CHOC 237 ML CAN PO SCH (10:30)
[2024-12-27] MEDS ORDERED: CEPH-570 PO (12:22)
[2024-12-27] MEDS: LEVETIRACETAM (250 MG) 250 MG TABLET PO SCH (12:28)
[2024-12-27] MEDS: LACOSAMIDE 50 MG TABLET PO SCH (12:28)
[2024-12-27 12:29] VITALS: BP 146/100
[2024-12-27] MEDS: VALSARTAN 40 MG TABLET PO SCH (12:29)
[2024-12-27] MEDS: TOPIRAMATE 100 MG TABLET PO SCH (12:29)
[2024-12-27] MEDS ORDERED: HEPARIN SODIUM, PORCINE 5000 UNITS/1 ML VIAL SQ SCH (13:00)
[2024-12-27] MEDS ORDERED: IPRATROPIUM NEB FS 0.5 MG/2.5 ML AMPUL.NEB IH SCH (13:30)
[2024-12-27] MEDS ORDERED: ATORVASTATIN 40 MG TABLET PO SCH (22:00)
[2024-12-27] MEDS ORDERED: DONEPEZIL 5 MG TABLET PO SCH (22:00)
[2024-12-28] MEDS ORDERED: LEVOTHYROXINE SODIUM 112 MCG TABLET PO SCH (07:30)
[2024-12-28] MEDS ORDERED: METOPROLOL SUCCINATE 25 MG TAB.SR.24H PO SCH (09:00)
== END 2024-12-27 16:00 | DRG 641 ==
LOC: ER 20:07 → GPSOV2 22:40 → MEDSG1 12-26 01:58
PROVIDERS: ADMIT Nurse Practitioner Family; ATTEND Nurse Practitioner Acute Care
DX: E86.0 Dehydration (principal); N39.0 Urinary tract infection, site not specified; E44.1 Mild protein-calorie malnutrition; F03.93 Unspecified dementia, unspecified severity, with mood disturbance; R62.7 Adult failure to thrive; G40.909 Epilepsy, unspecified, not intractable, without status epilepticus; Z20.822 Contact with and (suspected) exposure to COVID-19; Z87.440 Personal history of urinary (tract) infections; I69.398 Other sequelae of cerebral infarction; Z87.81 Personal history of (healed) traumatic fracture; E78.5 Hyperlipidemia, unspecified; E03.9 Hypothyroidism, unspecified; I10 Essential (primary) hypertension; Z96.641 Presence of right artificial hip joint; Z98.890 Other specified postprocedural states; Z88.0 Allergy status to penicillin; Z88.5 Allergy status to narcotic agent; Z79.01 Long term (current) use of anticoagulants; Z79.51 Long term (current) use of inhaled steroids; Z79.899 Other long term (current) drug therapy; B96.89 Other specified bacterial agents as the cause of diseases classified elsewhere; R73.9 Hyperglycemia, unspecified; E88.09 Other disorders of plasma-protein metabolism, not elsewhere classified; D64.9 Anemia, unspecified; Z86.59 Personal history of other mental and behavioral disorders
CPT/HCPCS: 36415; 70450-TC; 71045-TC; 80048-TC; 80076-TC; 81001; 83735-TC; 84100-TC; 84443-TC; 85025-TC; 87081-TC; 87086-TC; 87186-TC; 92526; 92611-TC; A4223; G0378; G0480; J0696; J1650; J2405; J7030; J7060